=== PATIENT | female | born 1970 | race Caucasian/White ===

== ENCOUNTER 2022-05-25 08:14 | Emergency (ER) | payer OTHER ==
--- OUTSIDE RECORDS SUMMARY | 2022-05-25 08:17 | XMS REPORT | Continuity of Care Document ---
:1970 Author Organization [facility] t Address 1200 [facility] [address] [place] [address] Care Team Providers Name Role Phone A_Byrd Attending Clinician Unavailable A_Byrd Admitting Clinician Unavailable Payers Payer Name Policy Type Policy Number Effective Date Expiration Date [facility] [id number] Problems Condition Condition Condition Status Onset Resolution Last Treating Co mments Source Name Details Category Date Date Treatment Clinician Date Fever Fever Problem Active 2020-0 [facility] 6[facility]11 da 00:00: Medical 00 Group Nausea Nausea Problem Active 2020-0 [facility] present Present 6-11 da 00:00: Medical 00 Group Chronic Chronic Problem Active 2020-0 [facility] hepatitis Hepatitis 4-29 da C C 00:00: Medical 00 Group Chronic Chronic Problem Active 2020-0 [facility] anxiety Anxiety 4-29 da 00:00: Medical 00 Group Menopausal Menopausal Problem Active 2020-0 [facility] syndrome Syndrome 4-29 da 00:00: Medical 00 Group Excessive Excessive Problem Active 2020-0 [facility] weight Weight 4-29 da gain Gain 00:00: Medical 00 Group Bilateral Bilateral Problem Active 2020-0 [facility] foot joint Foot Joint 4-29 da pain Pain 00:00: Medical 00 Group Allergies, Adverse Reactions, Alerts This patient has no known allergies or adverse reactions. Social History Smoking Status Start Date Stop Date Source Never Smoker [facility] Medications Ordered Filled Start Stop Current Ordering Indication Dosage Frequency Signature Comments Components Source Medication Medication Date Date Medication? Clinician (SIG) Name Name ondansetron ondansetron No 2 BID ondansetro [facility] HCl 4 mg HCl 4 mg n HCl 4 mg d a tablet Take tablet Take tablet Medical 2 tablets 2 tablets Take 2 Barrett up twice a day twice a day tablets by oral by oral twice a route. take route. take day by as needed as needed oral for nausea for nausea route. take as needed for nausea Procedures Procedure Date / Time Performed Performing Clinician [facility] e MAMMO, screening, 2019-07-03 00:00:00 [facility] digital, bilateral Group Removal of Ectopic 1993-03-06 00:00:00 [facility]etus [facility] Encounters Start End Encounter Admission Attending Care Care Encounter Source Date/Time Date/Time Type Type Clinicians Facility Department ID 2020-01-11 2020-01-11 Outpatient A_Byrd [facility] [id number] [facility] 01:05:00 01:05:00 [facility]7 [facility] 2019-12-07 2019-12-07 Outpatient A_Byrd [facility] MMG [id number] [facility] 01:02:00 01:02:00 1003 [facility] 2019-11-14 2019-11-14 Outpatient A_Byrd [facility] MMG [id number] [facility] 11:54:00 11:54:00 0910 [facility] Group 2019-10-11 2019-10-11 Outpatient A_Byrd [facility] MMG [id number] [facility] 05:56:00 05:56:00 0826 Medical Group 2019-09-22 2019-09-22 Outpatient A_Byrd [facility] MMG [id number] [facility] 12:07:00 12:07:00 0719 [facility] Group 2019-09-03 2019-09-03 Outpatient A_Byrd MMG MMG [id number] [facility] 03:42:00 03:42:00 0630 Medical Group 2019-08-18 2019-08-18 Outpatient A_Byrd MMG MMG [id number] [facility] 12:18:00 12:18:00 0614 Medical Group 2019-08-15 2019-08-15 [place] [id number] [facility] 05:59:00 05:59:00 0611 Medical Group 2019-08-15 2019-08-15 Marco Antonio Acevedo [facility] [place] - [id number] M at[facility] 00:00:00 00:00:00 MD Selvin: [address] [facility] [place] [address], [facility] [address] , Ph. 2019-08-14 2019-08-14 [facility] [id number] [place] 03:41:00 03:41:00 0610 Medical [facility] 2019-07-14 2019-07-14 [facility] [id number] [place] 12:08:00 12:08:00 0510 [facility] 2019-07-03 2019-07-03 Outpatient A_Byrd [facility] [id number] [place] 06:07:00 06:07:00 0429 [facility] 2019-07-03 2019-07-03 Marco Antonio N [facility] [place] - [id number] M at[facility] 00:00:00 00:00:00 MD Selvin: [place] [address], [facility] [address] , Ph. 2019-07-01 2019-07-01 Outpatient A_Byrd [facility] [id number] [place] 02:46:00 02:46:00 0427 [facility] 2019-06-25 2019-06-25 Outpatient A_Byrd [facility] [id number] [place] 11:11:00 11:11:00 0421 [facility] 2019-06-20 2019-06-20 Outpatient A_Byrd [facility] [id number] [place] 05:20:00 05:20:00 0416 [facility] 2019-06-19 2019-06-19 Outpatient A_Byrd [facility] [id number] [facility] 01:21:00 01:21:00 0415 [facility] Results This patient has no known results.
[2022-05-25] MEDS ORDERED: KETOROLAC 30 MG/ML INJ ONE (08:35)
--- NOTE | 2022-05-25 10:01 | RAD REPORT ---
EXAM DESCRIPTION: RAD - Foot Left 3 View - 05/25/2022 9:53 am CLINICAL HISTORY: Left Foot pain FINDINGS: No fracture or dislocation is seen. Moderate plantar calcaneal spur
--- NOTE | 2022-05-25 10:50 | EDPHYS ---
Physician Documentation [facility] Name: China Champagne Age: 51 yrs Sex: Female : 1970 Arrival Date: 05/25/2022 Time: 08:17 Bed 7 Private MD: ED Physician Eric Hightower HPI: 05/25 10:53 This 51 yrs old Female presents to ER via Ambulatory with complaints of Toe Injury. snw 10:53 The patient presents with a contusion, a crush injury, an injury, pain. The complaints snw affect the left foot. Context: The problem was sustained at work. Onset: The symptoms/episode began/occurred acutely. Associated signs and symptoms: Pertinent positives: foot pad contusion s/p large cover falling across dorsal foot. The patient has not experienced similar symptoms in the past. Historical: - Allergies: 08:26 No Known Allergies; ss - Home Meds: 08: None [Active]; ss - PMHx: 08: None; ss - PSHx: 08:26 None; ss - Immunization history:: Client reports receiving the 2nd dose of the Covid vaccine. - Social history:: Smoking status: Patient denies any tobacco usage or history of. ROS: 10:52 Constitutional: Negative for fever, chills, and weight loss, Eyes: Negative for injury, snw pain, redness, and discharge, ENT: Negative for injury, pain, and discharge, Neck: Negative for injury, pain, and swelling, Cardiovascular: Negative for chest pain, palpitations, and edema, Respiratory: Negative for shortness of breath, cough, wheezing, and pleuritic chest pain, Abdomen/GI: Negative for abdominal pain, nausea, vomiting, diarrhea, and constipation, Back: Negative for injury and pain, : Negative for injury, bleeding, discharge, and swelling, Skin: Negative for injury, rash, and discoloration, Neuro: Negative for headache, weakness, numbness, tingling, and seizure, Psych: Negative for depression, anxiety, suicide ideation, homicidal ideation, and hallucinations. 10:52 MS/extremity: Positive for contusion, pain, swelling. Exam: 08:27 Constitutional: This is a well developed, well nourished patient who is awake, alert, snw and in no acute distress. Head/Face: Normocephalic, atraumatic. Eyes: Pupils equal round and reactive to light, extra-ocular motions intact. Lids and lashes normal. Conjunctiva and sclera are non-icteric and not injected. Cornea within normal limits. Periorbital areas with no swelling, redness, or edema. Chest/axilla: Normal chest wall appearance and motion. Nontender with no deformity. No lesions are appreciated. Cardiovascular: Regular rate and rhythm with a normal S1 and S2. No gallops, murmurs, or rubs. Normal PMI, no JVD. No pulse deficits. Skin: Warm, dry with normal turgor. Normal color with no rashes, no lesions, and no evidence of cellulitis. 08:27 Neuro: Awake and alert, GCS 15, oriented to person, place, time, and situation. Cranial nerves II-XII grossly intact. Motor strength 5/5 in all extremities. Sensory grossly intact. Cerebellar exam normal. Normal gait. Psych: Awake, alert, with orientation to person, place and time. Behavior, mood, and affect are within normal limits. 08:27 Musculoskeletal/extremity: Extremities: grossly normal except: noted in the ball of left foot: contusion, ROM: no acute changes, Sensation intact. Weight bearing: able to fully bear weight, painful. Vital Signs: 08:24 Resp 17; Weight 127.01 kg; Height 5 ft. 9 in. ; Pain 10/10; ss 08:29 BP 179 / 90; Pulse 79; Resp 19 S; Temp 98.6(O); Pulse Ox 95% on R/A; Pain 10/10; kc6 09:02 BP 152 / 87; Pulse 71; Resp 16; Pulse Ox 95% ; bp 09:16 BP 148 / 89; Pulse 70; Resp 18 S; Pulse Ox 95% on R/A; kc6 10:20 BP 140 / 82; Pulse 70; Resp 18 S; Pulse Ox 97% on R/A; kc6 10:55 BP 140 / 82; Pulse 59; Resp 16; Pulse Ox 96% on R/A; Pain 3/10; sg5 08:24 Body Mass Index 41.35 (127.01 kg, 175.26 cm) ss 08:24 Pain Scale: Adult ss 08:29 Pain Scale: Adult kc6 10:55 Pain Scale: Adult sg5 MDM: 08:21 Patient medically screened. snw 10:51 Differential diagnosis: contusion, fracture. Data reviewed: vital signs, nurses notes, snw radiologic studies, plain films. Counseling: I had a detailed discussion with the patient and/or guardian regarding: the historical points, exam findings, and any diagnostic results supporting the discharge/admit diagnosis, the presence of at least one elevated blood pressure reading (>120/80) during this emergency department visit, radiology results, the need for outpatient follow up, for definitive care, to return to the emergency department if symptoms worsen or persist or if there are any questions or concerns that arise at home. Special discussion: I have referred the patient to see his PCP for further evaluation of high blood pressure. Based on the history and exam findings, there is no indication for further emergent testing or inpatient evaluation. I discussed with the patient/guardian the need to see the primary care provider for further evaluation of the symptoms. 05/25 08:26 Order name: Foot Left 3 View XRAY; Complete Time: 10:46 snw Administered Medications: 08:34 Drug: Ketorolac IM 15 mg Route: IM; Site: right deltoid; kc6 10:18 Follow up: Response: No adverse reaction; Pain is decreased; RASS: Alert and Calm (0) kc6 Disposition: 10:53 Co-signature as Attending Physician, Eric Hightower MD I reviewed the patient's care rt provided by the Advanced Practice Provider and agree with the diagnosis and treatment plan. Disposition Summary: 05/25/22 10:49 Discharge Ordered Location: Home snw Condition: Stable snw Diagnosis - Pain in left foot snw Followup: snw - With: Emergency Department - When: As needed - Reason: Worsening of condition Followup: snw - With: Private Physician - When: As needed - Reason: Recheck today's complaints, Continuance of care, Re-evaluation by your physician Discharge Instructions: - Discharge Summary Sheet snw - Musculoskeletal Pain snw - How to Use Cold Therapy, [id number] snw Forms: - Work release form snw - Medication Reconciliation Form snw - Thank You Letter snw - Antibiotic Education snw - Prescription Opioid Use snw Prescriptions: - Mobic 7.5 mg Oral Tablet - take 1 tablet by ORAL route once daily take with food; 20 tablet; Refills: 0, snw Product Selection Permitted Signatures: Dispatcher [employer] Zakia Mejía, PROCUREMENT ENGINEER-C PROCUREMENT ENGINEER-Csnw Amber Jones, RN RN ss Jeannine Florian RN RN kc6 Eric Hightower MD MD rt
--- NOTE | 2022-05-25 10:50 | ER ---
Nurse's Notes [facility] Name: China Champagne Age: 51 yrs Sex: Female : 1970 Arrival Date: 05/25/2022 Time: 08:17 Bed 7 Private MD: Diagnosis: Pain in left foot Presentation: 05/25 08:24 Chief complaint: Patient states: L great toe injury on Monday. Pt reports that pain got ss worse 2 days ago. Coronavirus screen: Client denies travel out of the [place] in the last 14 days. Ebola Screen: Patient denies exposure to infectious person. Patient denies travel to an Ebola-affected area in the 21 days before illness onset. Initial Sepsis Screen: Does the patient meet any 2 criteria? No. Patient's initial sepsis screen is negative. Does the patient have a suspected source of infection? No. Patient's initial sepsis screen is negative. Risk Assessment: Do you want to hurt yourself or someone else? Patient reports no desire to harm self or others. Onset of symptoms was May 20, 2022. 08:24 Method Of Arrival: Ambulatory ss 08:24 Acuity: ADRYAN 4 ss Historical: - Allergies: 08:26 No Known Allergies; ss - Home Meds: 08:26 None [Active]; ss - PMHx: 08:26 None; ss - PSHx: 08:26 None; ss - Immunization history:: Client reports receiving the 2nd dose of the Covid vaccine. - Social history:: Smoking status: Patient denies any tobacco usage or history of. Screenin:[facility] ED Fall Risk Assessment (Adult) History of falling in the last 3 months, sg5 including since admission No falls in past 3 months (0 pts). Abuse screen: Denies threats or abuse. Nutritional screening: No deficits noted. Tuberculosis screening: No symptoms or risk factors identified. Assessment: 08:28 General: Appears comfortable, Behavior is calm, cooperative, appropriate for age. Pain: sg5 Complains of pain in left top foot Pain currently is 10 out of 10 on a pain scale. at worst was 10 out of 10 on a pain scale. Neuro: No deficits noted. Level of Consciousness is awake, alert, obeys commands, Oriented to person, place, time, situation, Appropriate for age. Cardiovascular: No deficits noted. Capillary refill < 3 seconds. Respiratory: No deficits noted. Airway is patent Trachea midline. GI: No deficits noted. No signs and/or symptoms were reported involving the gastrointestinal system. : No deficits noted. No signs and/or symptoms were reported regarding the genitourinary system. EENT: No deficits noted. No signs and/or symptoms were reported regarding the EENT system. Derm: Skin is pink and inflamed area over top left foot Reports pain that is 10 out of 10 on a pain scale. since Monday05/20/22. Musculoskeletal: Reports pain in left foot with ROM. 09:15 Reassessment: Patient appears in no apparent distress at this time. No changes from kc6 previously documented assessment. Patient and/or family updated on plan of care and expected duration. Pain level reassessed. Patient is alert, oriented x 3, equal unlabored respirations, skin warm/dry/pink. 10:15 Reassessment: Patient appears in no apparent distress at this time. No changes from kc6 previously documented assessment. Patient and/or family updated on plan of care and expected duration. Pain level reassessed. Patient is alert, oriented x 3, equal unlabored respirations, skin warm/dry/pink. Vital Signs: 08:24 Resp 17; Weight 127.01 kg; Height 5 ft. 9 in. ; Pain 10/10; ss 08:29 BP 179 / 90; Pulse 79; Resp 19 S; Temp 98.6(O); Pulse Ox 95% on R/A; Pain 10/10; kc6 09:02 BP 152 / 87; Pulse 71; Resp 16; Pulse Ox 95% ; bp 09:16 BP 148 / 89; Pulse 70; Resp 18 S; Pulse Ox 95% on R/A; kc6 10:20 BP 140 / 82; Pulse 70; Resp 18 S; Pulse Ox 97% on R/A; kc6 10:55 BP 140 / 82; Pulse 59; Resp 16; Pulse Ox 96% on R/A; Pain 3/10; sg5 08:24 Body Mass Index 41.35 (127.01 kg, 175.26 cm) ss 08:24 Pain Scale: Adult ss 08:29 Pain Scale: Adult kc6 10:55 Pain Scale: Adult sg5 ED Course: 08:17 Patient arrived in ED. am2 08:21 Zakia Miranda FNP-C is PHCP. snw 08:21 Eric Hightower MD is Attending Physician. snw 08:21 Darryl Hoang, RN is Primary Nurse. bp 08:26 Triage completed. ss 08:26 Arm band placed on right wrist. ss 08:29 Patient has correct armband on for positive identification. Placed in gown. Bed in low kc6 position. Call light in reach. Side rails up X2. 09:55 Foot Left 3 View XRAY In Process Unspecified. EDMS 11:09 No provider procedures requiring assistance completed. Patient did not have IV access kc6 during this emergency room visit. Administered Medications: 08:34 Drug: Ketorolac IM 15 mg Route: IM; Site: right deltoid; kc6 10:18 Follow up: Response: No adverse reaction; Pain is decreased; RASS: Alert and Calm (0) kc6 Medication: 08:31 VIS not applicable for this client. sg5 Outcome: 10:49 Discharge ordered by MD. snw 11:09 Discharged to home ambulatory. kc6 11:09 Condition: stable 11:09 Discharge instructions given to patient, Instructed on discharge instructions, follow up and referral plans. medication usage, Demonstrated understanding of instructions, follow-up care, medications, Prescriptions given X 1. 11:09 Patient left the ED. kc6 Signatures: Dispatcher [employer] EDZakia Blanton, CATHERINE CULINARY ARTIST-Csnw Amber Jones, RN TAY Loree Torres am2 Darryl Hoang, RN RN Jeannine Deluca RN RN kc6 Bridgette Dos Santos RN RN sg5
[2022-05-25 11:15] VITALS: TEMP 98.6
[2022-05-25 11:18] VITALS: BP 140/82
[2022-05-25 11:20] VITALS: O2SAT 96
== END 2022-05-25 11:09 | disposition home or self-care (01) ==
LOC: ER 08:14
DX: M79.672 Pain in left foot (principal)
CPT/HCPCS: 96372; 99283

== ENCOUNTER 2023-07-06 19:59 | Inpatient (IN) | payer OTHER ==
--- OUTSIDE RECORDS SUMMARY | 2023-07-06 20:01 | XMS REPORT | Continuity of Care Document ---
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 Name Role Phone A_Byrd Attending Clinician Unavailable A_Byrd Admitting Clinician Unavailable Payers Payer Name Policy Type Policy Number Effective Date Expirati on Date Source [facility] [id number] Problems Condition Name Condition Details Condition Category Status Onset Date Resolution Date Last Treatment Date Treating Clinician Comments Source Fever Fever Problem Active 2020-0 6-11 00:00: 00 [facility] Nausea present Nausea Present Problem Active 2020-0 6-11 00:00: 00 [facility] Chronic hepatitis C Chronic Hepatitis C Problem Active 20200 4-29 00:00: 00 [facility] Chronic anxiety Chronic Anxiety Problem Active 20200 4-29 00:00: 00 [facility] Menopausal syndrome Menopausal Syndrome Problem Active 20200 4-29 00:00: 00 [facility] Excessive weight gain Excessive Weight Gain Problem Active 20200 4-29 00:00: 00 [facility] Bilateral foot joint pain Bilateral Foot Joint Pain Problem Active 20200 4-29 00:00: 00 [facility] Social History Smoking Status Start Date Stop Date Source Never Smoker [facility] Medications Ordered Medication Name Filled Medication Name Start Date Stop Date Current Medication? Ordering Clinician Indication Dosage Frequency Signature (SIG) Comments Components Source ondansetron HCl 4 mg tablet Take 2 tablets twice a day by oral route. take as needed for nausea ondansetron HCl 4 mg tablet Take 2 tablets twice a day by oral route. take as needed for nausea No 2 BID ondansetro n HCl 4 mg tablet Take 2 tablets twice a day by oral route. take as needed for nausea [facility] Procedures Procedure Date / Time Performed Performing [facility] Source MAMMO, screening, digital, bilateral 2019-07-03 00:00:00 [facility] Removal of Ectopic Fetus 1993-03-06 00:00:00 [facility] Encounters Start Date/Time End Date/Time Encounter Type Admission Type Attending [facility] Care Facility Care Department Encounter ID Source 2020-01-11 01:05:00 2020-01-11 01:05:00 Outpatient A_Byrd [facility] 1107 [facility] 2019-12-07 01:02:00 2019-12-07 01:02:00 Outpatient A_Byrd [facility] [id number] [facility] 2019-11-14 11:54:00 2019-11-14 11:54:00 Outpatient A_Byrd [facility] [id number] [facility] 2019-10-11 05:56:00 2019-10-11 05:56:00 Outpatient A_Byrd [facility] [id number] [facility] 2019-09-22 12:07:00 2019-09-22 12:07:00 Outpatient A_Byrd [facility] [id number] [facility] 2019-09-03 03:42:00 2019-09-03 03:42:00 Outpatient A_Byrd [facility] [id number] [facility] 2019-08-18 12:18:00 2019-08-18 12:18:00 Outpatient A_Byrd [facility] [id number] [facility] 2019-08-15 05:59:00 2019-08-15 05:59:00 Outpatient A_Byrd [facility] [id number] [facility] 2019-08-15 00:00:00 2019-08-15 00:00:00 Marco Antonio Montalvo MD: [address] [place] [address] [address], [place] [address] , Ph. [facility] [id number] [facility] 2019-08-14 03:41:00 2019-08-14 03:41:00 Outpatient A_Byrd [facility] [id number] [facility] 2019-07-14 12:08:00 2019-07-14 12:08:00 Outpatient A_Byrd [facility] [id number] [facility] 2019-07-03 06:07:00 2019-07-03 06:07:00 Outpatient A_Byrd [facility] [id number] [facility] 2019-07-03 00:00:00 2019-07-03 00:00:00 Marco Antonio Montalvo MD: [address] [place] [id number] , Ph. [facility] [id number] [facility] 2019-07-01 02:46:00 2019-07-01 02:46:00 Outpatient A_Byrd [facility] [id number] [facility] 2019-06-25 11:11:00 2019-06-25 11:11:00 Outpatient A_Byrd [facility] [id number] [facility] 2019-06-20 05:20:00 2019-06-20 05:20:00 Outpatient A_Byrd [facility] [id number] [facility] 2019-06-19 01:21:00 2019-06-19 01:21:00 Outpatient A_Byrd [facility] [id number] [facility]
[2023-07-06] MEDS ORDERED: THIAMINE 200 MG/2 ML INJ ONE (20:36)
[2023-07-06] MEDS ORDERED: FOLIC ACID 5 MG/ML VIAL ONE (20:37)
[2023-07-06] MEDS ORDERED: NA CHLORIDE 0.9% 2,000 ML ONE (20:37)
[2023-07-06] MEDS ORDERED: MULTIVITAMINS 10 ML VIAL (INJ) IV ONE (20:37)
[2023-07-06] MEDS ORDERED: CEFTRIAXONE 1000 MG/VIAL ONE (20:45)
[2023-07-06] MEDS ORDERED: LORazepam 2 MG/ML VIAL ONE (20:46)
[2023-07-06] MEDS ORDERED: FAMOTIDINE 20 MG/2 ML VIAL IV ONE (20:46)
[2023-07-06 20:47] LABS: Arterial Blood Carboxyhemoglob 1.1 % (0-1.5); Blood Gas Oxyhemoglobin 91.8 % (94-97); Blood Gas THB 13.1 g/dl (12-18); Blood O2 Saturation 94.2 % (92-98.5)
[2023-07-06 21:21] LABS: Absolute Eosinophils 0.1 K/uL (0-0.5); Absolute Lymphocytes (CBC) 1.8 K/uL (0.7-4.9); Absolute Monocytes 0.3 K/uL (0.1-1.3); Absolute Neutrophil 4.4 K/uL (1.8-8.0); Basophils % 0.5 % (0-1.3); Eosinophils % 1.1 % (0-4.4); Hematocrit 36.3 % (36.0-45.0); Hemoglobin 12.2 g/dL (12.0-15.0); Lymphocytes % 27.1 % (15.3-44.8); MCH 29.8 pg (27.0-35.0); MCHC 33.6 g/dL (32.0-36.0); MCV 88.6 fL (80-100); MPV 7.8 fL (7.6-11.3); Monocytes % 5.1 % (3.3-12.3); Neutrophils % 66.2 % (41.7-73.7); Nucleated Red Blood Cells % 0.1 % (0-0); Platelets 146 thou/uL (152-406); Red Cell Distribution Width 13.1 % (12.1-15.2)
[2023-07-06 21:26] LABS: PT Prothrombin Time 11.2 SECONDS (9.5-12.5); PTT, Activated Partial Thromb 30.7 SECONDS (24.3-36.9); Protime INR 1.02
[2023-07-06 21:43] LABS: ALT/SGPT 30 U/L (13-56); AST/SGOT 22 U/L (15-37); Albumin 3.3 g/dL (3.4-5.0); Albumin/Globulin Ratio 0.8 (1.1-1.8); Alkaline Phosphatase 64 U/L (45-117); Anion Gap 8.7 mEq/L (5.0-15.0); BUN Blood Urea Nitrogen 34 mg/dL (7-18); Bicarbonate 25 mEq/L (21-32); Bilirubin Direct 0.1 mg/dL (0-0.2); Bilirubin Indirect, Calculated 0.4 mg/dL (0.2-0.8); Bilirubin Total 0.5 mg/dL (0.2-1.0); Globulin 4.2 g/dL (2.3-3.5); Glomerular Filtration Rate 37 ml/min (=/>90); Glucose Level 119 mg/dL (74-106); Magnesium 1.6 mg/dL (1.6-2.4); NT PRO-BNP 2489 pg/mL (<125); Potassium 3.7 mEq/L (3.5-5.1); Protein, Total 7.5 g/dL (6.4-8.2); Sodium Level 141 mEq/L (136-145); Troponin High Sensitivity 4.6 pg/mL (<58.9)
[2023-07-06] MEDS ORDERED: NA CHLORIDE 0.9% 100 ML ONE (21:51)
[2023-07-06] MEDS ORDERED: PIPERACIL/TAZO 3.375 GM VIAL IV ONE (21:52)
[2023-07-06] MEDS ORDERED: NA CHLORIDE 0.9% 1,000 ML ONE (21:52)
--- NOTE | 2023-07-06 22:01 | RAD REPORT ---
EXAM DESCRIPTION: RAD - Chest Single View - 07/06/2023 9:54 pm CLINICAL HISTORY: ABDOMINAL DISTENTION Chest pain. COMPARISON: No comparisons FINDINGS: Portable technique limits examination quality. The lungs are grossly clear. The heart is mildly enlarged in size. No displaced fractures. IMPRESSION: No acute intrathoracic process suspected.
[2023-07-06] MEDS ORDERED: ZIPRASIDONE MESYLA 20 MG/VIAL IM ONE (22:10)
[2023-07-06] MEDS ORDERED: WATER FOR INJ,STERILE 10 ML ONE (22:11)
--- NOTE | 2023-07-06 22:16 | EDPHYS ---
Physician Documentation [facility] Name: China Champagne Age: 53 yrs Sex: Female : 1970 Arrival Date: 07/06/2023 Time: 19:59 Bed 2 Private MD: ED Physician Alex Negron HPI: 07/05 22:06 This 53 yrs old Female presents to ER via EMS with complaints of Altered jerod Mental Status. 22:06 The patient presents with confusion, disorientation, trouble concentrating. Onset: The jerod symptoms/episode began/occurred just prior to arrival. Possible causes: CVA or TIA, drug use, alcohol, head injury, low blood sugar, seizure, sepsis. Associated signs and symptoms: Pertinent positives: lightheadedness. Current symptoms: In the emergency department the patient's symptoms are unchanged from the initial presentation, despite home interventions, despite EMS interventions. Patient's baseline: Neuro: alert and fully oriented. It is unknown whether or not the patient has had similar symptoms in the past. [employer]: 07/06 00:48 Not km8 Historical: - Allergies: 07/05 20:01 Unable to obtain; mb9 - Home Meds: 20:01 Unable to obtain [Active]; mb9 - PMHx: 20:01 Hepatitis; HTN; mb9 - PSHx: 20:01 Unable to Obtain; mb9 - Immunization history:: Adult Immunizations unknown. - Infectious Disease History:: Denies. - Social history:: Smoking status: unknown. ROS: 22:07 Constitutional: Negative for fever, chills, and weight loss, Eyes: Negative for injury, jerod pain, redness, and discharge, ENT: Negative for injury, pain, and discharge, Neck: Negative for injury, pain, and swelling, Cardiovascular: Negative for chest pain, palpitations, and edema, Respiratory: Negative for shortness of breath, cough, wheezing, and pleuritic chest pain, 22:08 Abdomen/GI: Negative for abdominal pain, nausea, vomiting, diarrhea, and constipation, jerod Back: Negative for injury and pain, : Negative for injury, bleeding, discharge, and swelling, MS/Extremity: Negative for injury and deformity, Skin: Negative for injury, rash, and discoloration, Allergy/Immunology: Negative for hives, rash, and allergies, Endocrine: Negative for neck swelling, polydipsia, polyuria, polyphagia, and marked weight changes, 22:08 Neuro: Positive for altered mental status, Exam: 22:10 Constitutional: This is a well developed, well nourished patient who is awake, alert, jerod and in no acute distress. Head/Face: Normocephalic, atraumatic. Eyes: Pupils equal round and reactive to light, extra-ocular motions intact. Lids and lashes normal. Conjunctiva and sclera are non-icteric and not injected. Cornea within normal limits. Periorbital areas with no swelling, redness, or edema. ENT: Nares patent. No nasal discharge, no septal abnormalities noted. Tympanic membranes are normal and external auditory canals are clear. Oropharynx with no redness, swelling, or masses, exudates, or evidence of obstruction, uvula midline. Mucous membranes moist. Neck: Trachea midline, no thyromegaly or masses palpated, and no cervical lymphadenopathy. Supple, full range of motion without nuchal rigidity, or vertebral point tenderness. No Meningismus. Chest/axilla: Normal chest wall appearance and motion. Nontender with no deformity. No lesions are appreciated. Cardiovascular: Regular rate and rhythm with a normal S1 and S2. No gallops, murmurs, or rubs. Normal PMI, no JVD. No pulse deficits. Abdomen/GI: Soft, non-tender, with normal bowel sounds. No distension or tympany. No guarding or rebound. No evidence of tenderness throughout. Back: No spinal tenderness. No costovertebral tenderness. Full range of motion. Skin: Warm, dry with normal turgor. Normal color with no rashes, no lesions, and no evidence of cellulitis. MS/ Extremity: Pulses equal, no cyanosis. Neurovascular intact. Full, normal range of motion. 22:10 Neuro: Orientation: unable to test, Mentation: slow to respond, confused, Memory: unable to test, Cranial nerves: no acute changes, Motor: moves all fours, Sensation: unable to test, Gait: not tested. seizure activity, is not displayed by the patient, 07/06 00:08 ECG was reviewed by the Attending Physician. [facility] Vital Signs: 07/05 20:01 Pulse 74; Resp 22; Temp 98.1(T); Pulse Ox 100% on R/A; Weight 111.13 kg; Height 5 ft. 8 mb9 in. ; 21:10 Pulse 85; Resp 22; Pulse Ox 100% on R/A; mb9 21:49 BP 131 / 76; Pulse 61; Resp 15; Pulse Ox 95% on R/A; mb9 22:00 BP 135 / 76; Pulse 61; Resp 26; Pulse Ox 94% on R/A; km8 23:30 BP 142 / 90; Pulse 57; Resp 20; Pulse Ox 97% on R/A; 8 07/06 00:00 BP 136 / 88; Pulse 52; Resp 20; Pulse Ox 100% on R/A; km8 00:30 BP 127 / 84; Pulse 51; Resp 20; Pulse Ox 98% on R/A; [facility] 07/05 20:01 Body Mass Index 37.25 (111.13 kg, 172.72 cm) 9 Marlys Coma Score: 07/05 22:10 Eye Response: to voice(3). Motor Response: localizes pain(5). Verbal Response: jerod confused(4). Total: 12. MDM: 20:09 Patient medically screened. jerod 22:11 Differential Diagnosis: CVA, electrolyte abnormality, alcohol intoxication, jerod hypoglycemia, intracranial bleed, overdose, pneumonia, seizure, sepsis, TIA, UTI, volume depletion. Data reviewed: vital signs, nurses notes, EMS record, lab test result(s), EKG, radiologic studies, CT scan, plain films. Consideration of Admission/Observation Patient was admitted/placed on observation. Escalation of care including admission/observation considered. I considered the following discharge prescriptions or medication management in the emergency department Medications were administered in the Emergency Department. See MAR. Independent interpretation of the following test(s) in the Emergency Department EKG: See my EKG interpretation above. Test considered but Not performed: MRI: no mri brain. Historians other than the Patient: EMS: ems well informed. Spouse/Significant Other: so well informed. Care significantly affected by the following chronic conditions: Hypertension, Obesity, substance abuse. 07/05 20:25 Order name: Acetaminophen; Complete Time: 22:03 [facility] 07/05 20:25 Order name: Basic Metabolic Panel; Complete Time: 22:03 [facility] 07/05 20:25 Order name: CBC with Diff; Complete Time: 22:03 [facility] 07/05 20:25 Order name: ETOH Level; Complete Time: 22:03 [facility] 07/05 20:25 Order name: Hepatic Function; Complete Time: 22:03 [facility] 07/05 20:25 Order name: PT-INR; Complete Time: 22:03 [facility] 07/05 20:25 Order name: Test, Urine; Complete Time: 00:08 [facility] 07/05 20:25 Order name: Ptt, Activated; Complete Time: 22:03 [facility] 07/05 20:25 Order name: Salicylate [facility] 07/05 20:25 Order name: Urinalysis w/ reflexes; Complete Time: 00:08 [facility] 07/05 20:25 Order name: Urine Drug Screen [facility] 07/05 20:25 Order name: Magnesium; Complete Time: 22:03 [facility] 07/05 20:25 Order name: NT PRO-BNP; Complete Time: 22:03 [facility] 07/05 20:25 Order name: Troponin HS; Complete Time: 22:03 [facility] 07/05 20:25 Order name: ABG; Complete Time: 22:03 [facility] 07/05 20:36 Order name: Blood Culture Adult (2) [facility] 07/05 20:36 Order name: Lactate w/ 2H reflex if indic.; Complete Time: 22:03 [facility] 07/05 22:08 Order name: AMMONIA; Complete Time: 00:08 [facility] 07/05 23:44 Order name: Urine Culture [facility] 07/06 00:15 Order name: Urinalysis w/ reflexes [facility] 07/06 00:15 Order name: CBC with Automated Diff [facility] 07/06 00:15 Order name: CBC with Automated Diff [facility] 07/06 00:15 Order name: Comprehensive Metabolic Panel [facility] 07/06 00:15 Order name: Comprehensive Metabolic Panel [facility] 07/06 00:42 Order name: Lactate Sepsis 2 HR Follow-up [facility] 07/05 20:25 Order name: XRAY Chest (1 view); Complete Time: 22:03 [facility] 07/05 20:25 Order name: CT Traumagram (Head C Spine CAP wo con) [facility] 07/05 20:25 Order name: EKG; Complete Time: 20:26 [facility] 07/05 20:15 Order name: Restraint:Violent/Self Destructive (Adult:18yo or >); Complete Time: 20:15 [facility] 07/05 20:25 Order name: EKG - Nurse/Tech; Complete Time: 23:23 [facility] 07/05 20:25 Order name: IV Saline Lock; Complete Time: 21:13 [facility] 07/05 20:25 Order name: Labs collected and sent; Complete Time: 21: [facility] 07/05 20:25 Order name: Suicide Screening (Lee); Complete Time: 21: [facility] 07/05 20:25 Order name: Cardiac monitoring; Complete Time: 21:13 [facility] 07/05 20:25 Order name: O2 Per Protocol; Complete Time: 21:13 [facility] 07/05 20:25 Order name: O2 Sat Monitoring; Complete Time: 21: [facility] 07/05 20:25 Order name: Blood Glucose Level; Complete Time: 21:20 [facility] 07/05 21:42 Order name: Misc. Order: hob 40; Complete Time: 21:49 [facility] 07/05 22:04 Order name: IV Saline Lock - Large Bore; Complete Time: 22:20 [facility] EC/03 00:08 Rate is 46 beats/min. Rhythm is regular. QRS [place] is Normal. [place] interval is normal. QRS jerod interval is normal. QT interval is normal. No Q waves. T waves are Normal. No ST changes noted. Clinical impression: NSR w/ Non-specific ST/T Changes and No evidence of ischemia. Interpreted by me. Reviewed by me. Administered Medications: 07/05 20:45 Drug: NS 0.9% IV 1000 ml IV at 1 bolus Per protocol; 1000 mL bolus Route: IV; Rate: 1 mb9 bolus; Site: right antecubital; 22:00 Follow up: Response: No adverse reaction; IV Status: Completed infusion mb9 20:45 Drug: Thiamine IV 100 mg IV at bolus once Route: IV; Rate: bolus; Site: right mb9 antecubital; 20:45 Drug: Banana Bag - (Multivitamin IV 1 amp, NS 0.9% IV 1000 ml, Thiamine IV 100 mg, mb9 foLIC Acid IVPB 1 mg) IV at 500 ml/hr once Route: IV; Rate: 500 ml/hr; Site: right antecubital; 21:00 Drug: Ativan IVP 2 mg IVP once Route: IVP; Site: right antecubital; mb9 22:00 Follow up: Response: No adverse reaction mb9 21:05 Drug: Famotidine IVP 20 mg IVP once; dilute with 10 mL 0.9% NaCl; give over 2 minutes mb9 Route: IVP; Site: right antecubital; 22:00 Follow up: Response: No adverse reaction mb9 21:12 Drug: Rocephin IV 1 grams IV at per protocol once; Given slow IV push per pharmacy mb9 instructions Route: IV; Rate: per protocol; Site: right antecubital; 22:00 Drug: Piperacillin-Tazobactam IVPB 3.375 grams IVPB once over 60 mins; (mix in NS 100 mb9 mL) Route: IVPB; Infused Over: 60 mins; Site: left hand; 23:00 Follow up: Response: No adverse reaction; IV Status: Completed infusion; IV Intake: ha1 100ml 22:00 Drug: NS 0.9% IV 1000 ml IV at 1 bolus Per protocol; 1000 mL bolus Route: IV; Rate: 1 mb9 bolus; Site: right antecubital; 22:20 Drug: Geodon IM 20 mg IM once Route: IM; Site: left deltoid; ha1 22:40 Follow up: Response: No adverse reaction; Anxiety decreased; RASS: Drowsy (-1) ha1 Disposition Summary: 07/06/23 22:15 Hospitalization Ordered Notes: Hospitalization Status: Inpatient Admission jerod Provider: Willis Simon cha Location: Telemetry/MedSurg (Inpatient) jerod Condition: Fair jerod Problem: new jerod Symptoms: have improved jerod Bed/Room Type: Standard [facility] Room Assignment: 224(07/07/23 00:38) rv1 Diagnosis - Adverse effect of other drugs, medicaments and biological substances jerod - Abuse of other non-psychoactive substances jerod - Altered mental status, unspecified jerod - Unspecified kidney failure - chronic jerod - Adverse effect of benzodiazepines jerod - UTI/ Urinary tract infection, site not specified jerod Forms: - Medication Reconciliation Form jerod - SBAR form jerod - Leadership Thank You Letter jerod Signatures: Dispatcher [employer] Alex Day MD MD cha Ayala, Heidy, RN RN ha1 Ame Gray RN RN mb9 Destiney Collado rv1 Corrections: (The following items were deleted from the chart) 20: 20:25 ACETAMINOPHEN+C.LAB.BRZ ordered. EDMS EDMS 20:26 20:25 BASIC METABOLIC PANEL+C.LAB.BRZ ordered. EDMS EDMS 20: 20:25 CBC+H.LAB.BRZ ordered. EDMS EDMS 20: 20:25 ETHANOL+C.LAB.BRZ ordered. EDMS EDMS 20: 20:25 HEPATIC FUNCTION+C.LAB.BRZ ordered. EDMS EDMS 20: 20:25 PROTIME (+INR)+COAG.LAB.BRZ ordered. EDMS EDMS 20: 20:25 Test, Urine+UC.LAB.BRZ ordered. EDMS EDMS 20: 20:25 PTT, ACTIVATED+COAG.LAB.BRZ ordered. EDMS EDMS 20: 20:25 SALICYLATE+C.LAB.BRZ ordered. EDMS EDMS 20: 20:25 Urinalysis+U.LAB.BRZ ordered. EDMS EDMS 20: 20:25 URINE DRUG SCREEN+UC.LAB.BRZ ordered. EDMS EDMS 20: 20:25 MAGNESIUM+C.LAB.BRZ ordered. EDMS EDMS 20: 20:25 PROBNP+C.LAB.BRZ ordered. EDMS EDMS 20: 20:25 Troponin High Sensitivity+C.LAB.BRZ ordered. EDMS EDMS 20: 20:26 Head C Spine Cap Wo Con+CT.RAD.BRZ ordered. EDMS EDMS 20: 20:26 Arterial Blood Gas+RC.LAB.BRZ ordered. EDMS EDMS 22:11 22:08 Constitutional: This is a well developed, well nourished patient who is awake, jerod alert, and in no acute distress. Head/Face: Normocephalic, atraumatic. Eyes: Pupils equal round and reactive to light, extra-ocular motions intact. Lids and lashes normal. Conjunctiva and sclera are non-icteric and not injected. Cornea within normal limits. Periorbital areas with no swelling, redness, or edema. ENT: Nares patent. No nasal discharge, no septal abnormalities noted. Tympanic membranes are normal and external auditory canals are clear. Oropharynx with no redness, swelling, or masses, exudates, or evidence of obstruction, uvula midline. Mucous membranes moist. Neck: Trachea midline, no thyromegaly or masses palpated, and no cervical lymphadenopathy. Supple, full range of motion without nuchal rigidity, or vertebral point tenderness. No Meningismus. Chest/axilla: Normal chest wall appearance and motion. Nontender with no deformity. No lesions are appreciated. Cardiovascular: Regular rate and rhythm with a normal S1 and S2. No gallops, murmurs, or rubs. Normal PMI, no JVD. No pulse deficits. Respiratory: Lungs have equal breath sounds bilaterally, clear to auscultation and percussion. No rales, rhonchi or wheezes noted. No increased work of breathing, no retractions or nasal flaring. Abdomen/GI: Soft, non-tender, with normal bowel sounds. No distension or tympany. No guarding or rebound. No evidence of tenderness throughout. Back: No spinal tenderness. No costovertebral tenderness. Full range of motion. Skin: Warm, dry with normal turgor. Normal color with no rashes, no lesions, and no evidence of cellulitis. Psych: Awake, alert, with orientation to person, place and time. Behavior, mood, and affect are within normal limits. [facility] 07/06 00:38 07/05 22:15 [facility] rv1
--- NOTE | 2023-07-06 22:16 | ER ---
Nurse's Notes [facility] Name: China Champagne Age: 53 yrs Sex: Female : 1970 Arrival Date: 07/06/2023 Time: 19:59 Bed 2 Private MD: Diagnosis: Adverse effect of other drugs, medicaments and biological substances;Abuse of other non-psychoactive substances;Altered mental status, unspecified;Unspecified kidney failure-chronic;Adverse effect of benzodiazepines;UTI/ Urinary tract infection, site not specified Presentation: 07/05 20:01 Chief complaint: EMS states: "toned out for being found by family unresponsive at home. mb9 Gave 1 mg of Narcan and pt became responsive. Pt states she took 3-5 Alprazolam and has a history of drug abuse. Pt is combative, confused, and noncompliant with staff.". Coronavirus screen: At this time, the client does not indicate any symptoms associated with coronavirus-19. Ebola Screen: No symptoms or risks identified at this time. Initial Sepsis Screen: Does the patient meet any 2 criteria? No. Patient's initial sepsis screen is negative. Does the patient have a suspected source of infection? No. Patient's initial sepsis screen is negative. Risk Assessment: Do you want to hurt yourself or someone else? Unable to obtain. Onset of symptoms was July 06, 2023. 20:01 Method Of Arrival: EMS: [facility] mb9 20:01 Acuity: ADRYAN 2 mb9 Triage Assessment: 20:17 General: Appears uncomfortable, Behavior is agitated, combative, uncooperative. Pain: mb9 Denies pain. EENT: No signs and/or symptoms were reported regarding the EENT system. Neuro: Level of Consciousness is awake, confused, Oriented to person. Cardiovascular: Heart tones S1 S2 present Patient's skin is warm and dry. Respiratory: Airway is patent Respiratory effort is even, unlabored, Respiratory pattern is regular, symmetrical. GI: Abdomen is round obese, Bowel sounds present X 4 quads. Abd is soft and non tender X 4 quads. : No signs and/or symptoms were reported regarding the genitourinary system. Derm: Skin is pink, warm \\T\\ dry. Musculoskeletal: Range of motion: intact in all extremities. BRICK CLEANER: 07/06 00:48 Not km8 Historical: - Allergies: 07/05 20:01 Unable to obtain; mb9 - Home Meds: 20:01 Unable to obtain [Active]; mb9 - PMHx: 20:01 Hepatitis; HTN; mb9 - PSHx: 20:01 Unable to Obtain; mb9 - Immunization history:: Adult Immunizations unknown. - Infectious Disease History:: Denies. - Social history:: Smoking status: unknown. Screenin:18 [facility] ED Fall Risk Assessment (Adult) History of falling in the last 3 months, mb9 including since admission No falls in past 3 months (0 pts) Confusion or Disorientation Yes (5 pts) Intoxicated or Sedated Yes (3 pts) Impaired Gait Yes (1 pt) Mobility Assist Device Used No (0 pt) Altered Elimination No (0 pt) Score/Fall Risk Level 3 or more points = High Risk Oriented to surroundings, Maintained a safe environment, Educated pt \\T\\ family on fall prevention, incl call for assistance when getting out of bed, Assessed \\T\\ reinforced patient's understanding of fall precautions. Abuse screen: Denies threats or abuse. Nutritional screening: No deficits noted. Tuberculosis screening: No symptoms or risk factors identified. Assessment: 20:05 Reassessment: Unable to get BP and EKG at this time due to pt being noncompliant. mb9 21:00 Reassessment: No changes from previously documented assessment. General: Behavior is mb9 agitated, anxious, combative. Neuro: Level of Consciousness is awake, Oriented to person. Cardiovascular: Patient's skin is warm and dry. Respiratory: Airway is patent Respiratory effort is even, unlabored, Respiratory pattern is regular, symmetrical. 21:35 Reassessment: No changes from previously documented assessment. General: Behavior is mb9 agitated, anxious, combative. Neuro: Level of Consciousness is awake, Oriented to person. 22:40 General: Appears comfortable, Behavior is cooperative, drowsy. Pain: Denies pain. ha1 Neuro: Level of Consciousness is awake, alert, obeys commands, Oriented to person, place, time, situation. Cardiovascular: Capillary refill < 3 seconds Patient's skin is warm and dry. Rhythm is sinus bradycardia. Respiratory: Airway is patent Respiratory effort is even, unlabored, Respiratory pattern is regular, symmetrical. GI: Abdomen is round obese. : No signs and/or symptoms were reported regarding the genitourinary system. Derm: Skin is pink, warm \\T\\ dry. Musculoskeletal: Circulation, motion, and sensation intact. Range of motion: intact in all extremities. 23:23 Reassessment: cell # [phone] patient's partner. ha1 23:25 Reassessment: eyes closed. Respiratory: Airway is patent Respiratory effort is even, ha1 unlabored, Respiratory pattern is regular, symmetrical. 07/06 00:25 Reassessment: eyes closed. Respiratory: Airway is patent Respiratory effort is even, ha1 unlabored, Respiratory pattern is regular, symmetrical. 00:56 Reassessment: fax sheet sent. received by TAY Castro. ha1 01:39 Reassessment: Patient and/or family updated on plan of care and expected duration. Pain ha1 level reassessed. Patient is alert, oriented x 3, equal unlabored respirations, skin warm/dry/pink. Vital Signs: 07/05 20:01 Pulse 74; Resp 22; Temp 98.1(T); Pulse Ox 100% on R/A; Weight 111.13 kg; Height 5 ft. 8 mb9 in. ; 21:10 Pulse 85; Resp 22; Pulse Ox 100% on R/A; mb9 21:49 BP 131 / 76; Pulse 61; Resp 15; Pulse Ox 95% on R/A; mb9 22:00 BP 135 / 76; Pulse 61; Resp 26; Pulse Ox 94% on R/A; km8 23:30 BP 142 / 90; Pulse 57; Resp 20; Pulse Ox 97% on R/A; km8 07/06 00:00 BP 136 / 88; Pulse 52; Resp 20; Pulse Ox 100% on R/A; km8 00:30 BP 127 / 84; Pulse 51; Resp 20; Pulse Ox 98% on R/A; km8 07/05 20:01 Body Mass Index 37.25 (111.13 kg, 172.72 cm) mb9 [place] Coma Score: 07/05 22:10 Eye Response: to voice(3). Motor Response: localizes pain(5). Verbal Response: jerod confused(4). Total: 12. ED Course: 20:00 Patient arrived in ED. rv1 20:01 Ame Gray RN is Primary Nurse. mb9 20:01 Arm band placed on. mb9 20:04 Triage completed. mb9 20:04 Placed in gown. Bed in low position. Call light in reach. Side rails up X 1. Provided mb9 Education on: press call light if needing anything. Client placed on continuous cardiac and pulse oximetry monitoring. NIBP monitoring applied. pleating supervisor on. Door closed. Noise minimized. 20:09 Alex Negron MD is Attending Physician. jerod 20:10 Maintain EMS IV. Dressing intact. Good blood return noted. Site clean \\T\\ dry. Gauge \\T\\ mb 9 site: 20 g left hand. 20:15 Inserted saline lock: 22 gauge in right antecubital area, using aseptic technique. mb9 20:49 Radiology exam delayed due to pt is combative and has not received any medication. az 21:13 XRAY Chest (1 view) Sent. mb9 21:41 Notified ED physician of a critical lab result(s). Lactic Acid 2.1. cm10 21:56 XRAY Chest (1 view) In Process Unspecified. EDMS 22:00 Report given to TAY Mary. mb9 22:08 Report received from Christine. ha1 22:13 Willis Simon MD is Hospitalizing Provider. jerod 22:51 CT Traumagram (Head C Spine CAP wo con) In Process Unspecified. EDMS 23:23 AMMONIA Sent. ha1 05 00:47 No provider procedures requiring assistance completed. Patient admitted, IV remains in km8 place. Restraints: 07/05 20:15 Violent/Self Destructive Restraint: Restraint Order: Initial/Renewal: Initial order cm10 obtained. Initiated July 06, 2023 at 20:15 Staff present during the initiation of restraint: Lakeisha Cohen, TAY and Nevigo Po. Family Notification/Education: No family available at this time. . Education provided to family/significant other/legally authorized billing customer service representative. Monitoring: Respiratory status Respirations even/unlabored, no distress. Circulation: Skin warm and dry, capillary refill WNL. Skin integrity: Intact, healthy with good turgor. No injuries due to Restraints noted. Mental status: agitated/restless, Observed actions/behavior: violent, severely aggressive, harming self/others, confusion/disorientation, unable to follow instructions, Less restrictive alternatives attempted: decreased environmental stimuli, 1:1 patient care, placed near Nurse station, reoriented to location, trained sitter in room, covered lines/tubes, eliminated unnecessary lines/tubes, verbal de-escalation performed, Alternative interventions: Effective. Clinical justification for use: Violent/self destructing behavior impacts therapeutic environment. Poses a serious danger to physical safety of self \\T\\ others. Violent/Self Destructive Restraint: Restraint status: Side rails up Started. Soft wrist restraint (Right) Soft wrist restraint (Left) Soft ankle restraint (Right) Soft ankle restraint (Left). 20:30 Violent/Self Destructive Restraint: Restraint status: Side rails up Continued. Soft cm10 wrist restraint (Right) Soft wrist restraint (Left) Soft ankle restraint (Right) Soft ankle restraint (Left) Readiness for Discontinue: Criteria not met. Patient still violent/self destructive and Alternative interventions still ineffective. Restraint continued. 20:45 Violent/Self Destructive Restraint: Restraint status: Side rails up Continued. Soft cm10 wrist restraint (Right) Soft wrist restraint (Left) Soft ankle restraint (Right) Soft ankle restraint (Left) Readiness for Discontinue: Criteria not met. Patient still violent/self destructive and Alternative interventions still ineffective. Restraint continued. 21:00 Violent/Self Destructive Restraint: Restraint status: Side rails up Continued. Soft cm10 wrist restraint (Right) Soft wrist restraint (Left) Soft ankle restraint (Right) Soft ankle restraint (Left) Readiness for Discontinue: Criteria not met. Patient still violent/self destructive and Alternative interventions still ineffective. Restraint continued. 21:15 Violent/Self Destructive Restraint: Criteria not met. Patient still violent/self cm10 destructive and Alternative interventions still ineffective. Restraint continued. Restraint status: Side rails up Continued. Soft wrist restraint (Right) Soft wrist restraint (Left) Soft ankle restraint (Right) Soft ankle restraint (Left). 21:15 Violent/Self Destructive Restraint: ROM performed. mb9 21:30 Violent/Self Destructive Restraint: Criteria not met. Patient still violent/self cm10 destructive and Alternative interventions still ineffective. Restraint continued. Restraint status: Side rails up Continued. Soft wrist restraint (Right) Soft wrist restraint (Left) Soft ankle restraint (Right) Soft ankle restraint (Left). 21:45 Violent/Self Destructive Restraint: Restraint status: Side rails up Continued. Soft cm10 wrist restraint (Right) Continued. Soft wrist restraint (Left) Continued. Soft ankle restraint (Right) Continued. Soft ankle restraint (Left) Continued. Readiness for Discontinue: Criteria not met. Patient still violent/self destructive and Alternative interventions still ineffective. Restraint continued. 22:00 Violent/Self Destructive Restraint: Restraint status: Side rails up Continued. Soft cm10 wrist restraint (Right) Continued. Soft wrist restraint (Left) Continued. Soft ankle restraint (Right) Continued. Soft ankle restraint (Left) Continued. Readiness for Discontinue: Criteria not met. Patient still violent/self destructive and Alternative interventions still ineffective. Restraint continued. 22:00 Violent/Self Destructive Restraint: ROM performed. mb9 22:15 Violent/Self Destructive Restraint: Restraint status: Readiness for Discontinue: cm10 Release criteria met. No longer exhibiting violent or self destructive behavior. Alt interventions effective. Assumed responsibility of patient in restraints. Report received from TAY King Restraint discontinuation: Discontinued at July 06, 2023 at 22:15. Administered Medications: 20:45 Drug: NS 0.9% IV 1000 ml IV at 1 bolus Per protocol; 1000 mL bolus Route: IV; Rate: 1 mb9 bolus; Site: right antecubital; 22:00 Follow up: Response: No adverse reaction; IV Status: Completed infusion mb9 20:45 Drug: Thiamine IV 100 mg IV at bolus once Route: IV; Rate: bolus; Site: right [facility] antecubital; 20:45 Drug: Banana Bag - (Multivitamin IV 1 amp, NS 0.9% IV 1000 ml, Thiamine IV 100 mg, mb9 foLIC Acid IVPB 1 mg) IV at 500 ml/hr once Route: IV; Rate: 500 ml/hr; Site: right antecubital; 21:00 Drug: Ativan IVP 2 mg IVP once Route: IVP; Site: right antecubital; mb9 22:00 Follow up: Response: No adverse reaction mb9 21:05 Drug: Famotidine IVP 20 mg IVP once; dilute with 10 mL 0.9% NaCl; give over 2 minutes mb9 Route: IVP; Site: right antecubital; 22:00 Follow up: Response: No adverse reaction mb9 21:12 Drug: Rocephin IV 1 grams IV at per protocol once; Given slow IV push per pharmacy mb9 instructions Route: IV; Rate: per protocol; Site: right antecubital; 22:00 Drug: Piperacillin-Tazobactam IVPB 3.375 grams IVPB once over 60 mins; (mix in NS 100 mb9 mL) Route: IVPB; Infused Over: 60 mins; Site: left hand; 23:00 Follow up: Response: No adverse reaction; IV Status: Completed infusion; IV Intake: ha1 100ml 22:00 Drug: NS 0.9% IV 1000 ml IV at 1 bolus Per protocol; 1000 mL bolus Route: IV; Rate: 1 mb9 bolus; Site: right antecubital; 22:20 Drug: Geodon IM 20 mg IM once Route: IM; Site: left deltoid; ha1 22:40 Follow up: Response: No adverse reaction; Anxiety decreased; RASS: Drowsy (-1) ha1 Medication: 20:04 VIS not applicable for this client. mb9 Intake: 23:00 IV: 100ml; Total: 100ml. ha1 Outcome: 22:15 Decision to Hospitalize by Provider. [facility] 07/06 01:40 Admitted to Med/surg accompanied by tech, via stretcher, room 224, with chart, ha1 Condition: stable Instructed on the need for admit, Demonstrated understanding of instructions, 01:41 Patient left the ED. 1 Signatures: Dispatcher [employer] EDAlex Barnett MD MD cha Zavala, Araceli az Ayala, Heidy RN RN ha1 Ame Gray RN RN mb9 Destiney Collado rv1 Lakeisha Sifuentes, RN RN cm10 Cassie Ribeiro, TAY RN km8 Corrections: (The following items were deleted from the chart) 07/05 21:33 20:16 Violent/Self Destructive Restraint: Restraint Order: Initial/Renewal: Initial cm10 order obtained. Initiated July 06, 2023 at 20:15 Staff present during the initiation of restraint: Lakeisha Cohen, RN and mandi Fontenot. Family Notification/Education: Education provided to family/significant other/legally authorized billing customer service representative. Monitoring: Respiratory status Respirations even/unlabored, no distress. Circulation: Skin warm and dry, capillary refill WNL. Skin integrity: Intact, healthy with good turgor. No injuries due to Restraints noted. Mental status: agitated/restless, Observed actions/behavior: violent, severely aggressive, harming self/others, confusion/disorientation, unable to follow instructions, Less restrictive alternatives attempted: decreased environmental stimuli, 1:1 patient care, placed near Nurse station, reoriented to location, trained sitter in room, covered lines/tubes, eliminated unnecessary lines/tubes, verbal de-escalation performed, Alternative interventions: Effective. Clinical justification for use: Violent/self destructing behavior impacts therapeutic environment. Poses a serious danger to physical safety of self \\T\\ others. [facility] 21:33 20:16 Violent/Self Destructive Restraint: Restraint Order: Initial/Renewal: Initial cm10 order obtained. Initiated July 06, 2023 at 20:15 Staff present during the initiation of restraint: Lakeisha Cohen RN and Nevigo Po. Family Notification/Education: No family available at this time. . Education provided to family/significant other/legally authorized billing customer service representative. Monitoring: Respiratory status Respirations even/unlabored, no distress. Circulation: Skin warm and dry, capillary refill WNL. Skin integrity: Intact, healthy with good turgor. No injuries due to Restraints noted. Mental status: agitated/restless, Observed actions/behavior: violent, severely aggressive, harming self/others, confusion/disorientation, unable to follow instructions, Less restrictive alternatives attempted: decreased environmental stimuli, 1:1 patient care, placed near Nurse station, reoriented to location, trained sitter in room, covered lines/tubes, eliminated unnecessary lines/tubes, verbal de-escalation performed, Alternative interventions: Effective. Clinical justification for use: Violent/self destructing behavior impacts therapeutic environment. Poses a serious danger to physical safety of self \\T\\ others. [facility] 21:33 20:16 Violent/Self Destructive Restraint: Restraint status: Side rails up Started. Soft cm10 wrist restraint (Right) Soft wrist restraint (Left) Soft ankle restraint (Right) Soft ankle restraint (Left) [facility] 07/06 01:44 07/05 20:30 Violent/Self Destructive Restraint: Restraint status: Side rails up cm10 Continued. Soft wrist restraint (Right) Soft wrist restraint (Left) Soft ankle restraint (Right) Soft ankle restraint (Left) [facility] 07/06 01:44 07/05 21:32 Violent/Self Destructive Restraint: Restraint Order: Initial/Renewal: cm10 Family Notification/Education: 10 07/06 01:44 07/05 22:15 Violent/Self Destructive Restraint: Assumed responsibility of patient in cm10 restraints. Report received from TAY King Restraint discontinuation: Discontinued at July 06, 2023 at 22:15 ha1 07/06 01:44 05/ 22:15 Violent/Self Destructive Restraint: Restraint status: Readiness for cm10 Discontinue: Release criteria met. No longer exhibiting violent or self destructive behavior. Alt interventions effective. Assumed responsibility of patient in restraints. Report received from TAY King Restraint discontinuation: Discontinued at July 06, 2023 at 22:15 cm10 07/06 01:45 07/05 21:00 Violent/Self Destructive Restraint: Restraint status: Side rails up cm10 Continued. Soft wrist restraint (Right) Soft wrist restraint (Left) Soft ankle restraint (Right) Soft ankle restraint (Left) [facility] 07/06 01:46 07/05 20:45 Violent/Self Destructive Restraint: Restraint status: Side rails up cm10 Continued. Soft wrist restraint (Right) Soft wrist restraint (Left) Soft ankle restraint (Right) Soft ankle restraint (Left) 07/06 01:46 07/05 21:15 Violent/Self Destructive Restraint: Restraint status: Side rails up cm10 Continued. Soft wrist restraint (Right) Soft wrist restraint (Left) Soft ankle restraint (Right) Soft ankle restraint (Left) 07/06 01:46 05 21:15 Violent/Self Destructive Restraint: Restraint status: Side rails up cm10 Continued. Soft wrist restraint (Right) Soft wrist restraint (Left) Soft ankle restraint (Right) Soft ankle restraint (Left) 07/06 01:46 07/05 21:30 Violent/Self Destructive Restraint: Restraint status: Side rails up cm10 Continued. Soft wrist restraint (Right) Soft wrist restraint (Left) Soft ankle restraint (Right) Soft ankle restraint (Left) 07/06 01:47 0502 21:45 Violent/Self Destructive Restraint: Restraint status: Side rails up cm10 Continued. Soft wrist restraint (Right) Continued. Soft wrist restraint (Left) Continued. Soft ankle restraint (Right) Continued. Soft ankle restraint (Left) Continued. 07/06 01:47 07/05 22:00 Violent/Self Destructive Restraint: Restraint status: Side rails up cm10 Continued. Soft wrist restraint (Right) Continued. Soft wrist restraint (Left) Continued. Soft ankle restraint (Right) Continued. Soft ankle restraint (Left) Continued. 07/06 01:47 07/05 22:00 Violent/Self Destructive Restraint: Restraint status: Side rails up cm10 Continued. Soft wrist restraint (Right) Continued. Soft wrist restraint (Left) Continued. Soft ankle restraint (Right) Continued. Soft ankle restraint (Left) Continued. Readiness for Discontinue: Criteria not met. Patient still violent/self destructive and Alternative interventions still ineffective. Restraint continued. cm10
--- NOTE | 2023-07-06 23:25 | P.HP ---
Certification for Inpatient Patient admitted to: Inpatient With expected LOS: >2 Midnights Practitioner: I am a practitioner with admitting privileges, knowledge of patient current condition, hospital course, and medical plan of care. Services: Services provided to patient in accordance with Admission requirements found in Title 42 Section 412.3 of the Code of Federal Regulations Patient History Date of Service: 07/07/23 Reason for admission: AMS History of Present Illness: 53 yrs old Female past medical history of hepatitis and hypertension came to ER with altered mental status The patient presents with confusion, disorientation, trouble concentrating, started today. Patient is a poor historian hence most of the history is obtained from the chart review and also talk with the ER physician. As per the EMS patient was taking Xanax and she took doxepin accidentally to sleep along with it. At the time of interview patient is obtunded and cannot be aroused. Maintaining airway. Stroke workup was negative for an acute changes. Patient is being admitted for further management Allergies No Known Allergies Allergy (Unverified 02/04/12 06:15) Home Medications: Cefdinir [Cefdinir*] 300 mg PO BID #14 cap 07/07/23 - Past Medical/Surgical History Past Medical History: Reviewed- Non-Contributory Past Surgical History: Reviewed- Non-Contributory - Family History Family History: Reviewed- Non-Contributory - Social History Smoking Status: Current some day smoker Review of Systems is unable to be obtained Physical Examination - Vital Signs Temperature: 98.1 F Blood Pressure: 128/78 Pulse: 78 Respirations: 18 Pulse Ox (%): 94 - Physical Exam General: Confused, Comatose, Obese HEENT: Atraumatic, Normocephalic Neck: Supple, JVD not distended Respiratory: Clear to auscultation bilaterally, Normal air movement Cardiovascular: Regular rate/rhythm, Normal S1 S2 Capillary refill: <2 Seconds Gastrointestinal: Soft and benign, Non-distended, W/out hepatosplenomegaly Musculoskeletal: No clubbing, No swelling Integumentary: No rashes, No significant lesion, No tenderness/swelling Neurological: Abnormal gait, Abnormal speech, Abnormal strength, Abnormal cranial nerve function, Abnormal reflexes Lymphatics: No axilla or inguinal lymphadenopathy - Studies Laboratory Data (last 24 hrs) 07/06/23 07/06/23 07/06/23 20:59 20:59 20:59 WBC 6.60 Hgb 12.2 Hct 36.3 Plt Count 146 L PT 11.2 INR 1.02 APTT 30.7 Sodium 141 Potassium 3.7 BUN 34 H Creatinine 1.66 H Glucose 119 H Magnesium 1.6 Total Bilirubin 0.5 AST 22 ALT 30 Alkaline Phosphatase 64 Assessment and Plan - Problems (Diagnosis) (1) Benzodiazepine misuse Current Visit: Yes Status: Acute (2) Marijuana use Current Visit: Yes Status: Acute (3) UTI (urinary tract infection) Current Visit: Yes Status: Acute Plan: Acute encephalopathy Possibly toxic due to medications Monitor neuro vital signs CT head negative for any acute changes Monitor closely under telemetry Substance abuse/drug overdoses Supportive management IV hydration N.p.o. for now UTI Will start on antibiotics Obtain cultures Change antibiotic as per sensitivity GI/DVT prophylaxis Advanced directive full code Discharge Plan: Home Plan to discharge in: 48 Hours - Advance Directives Does patient have a Living Will: No Does patient have a Durable POA for Healthcare: No - Code Status/Comfort Care Code Status: Full Code Time Spent Managing Pts Care (In Minutes): 45
[2023-07-06 23:32] LABS: Sqamous Epithelial <5 /HPF (None Seen); Urine Bacteria <20 /HPF (<20); Urine Crystals Unidentified Few /HPF (None Seen); Urine Culture Reflex Order REFLEXED; Urine Microscopic Reflex YN ORDER UMIC; Urine RBC <5 /HPF (None Seen); Urine WBC 20-50 /HPF (<5); Urine WBC Clump Rare /HPF (None Seen); Urine Yeast (Budding) Trace /HPF (None Seen)
[2023-07-06 23:40] LABS: Specific Gravity 1.007 (1.005-1.030); Urine Bilirubin NEGATIVE (Negative); Urine Blood Negative (Negative); Urine Clarity Turbid (Clear); Urine Color Colorless (Yellow); Urine Glucose NEGATIVE (Negative); Urine Ketones NEGATIVE (Negative); Urine Nitrite 2+ (Negative); Urine Protein NEGATIVE (Negative); Urine Urobilinogen Normal (Normal); Urine pH 6.5 (5.0-7.0)
[2023-07-06 23:41] LABS: Specific Gravity 1.007 (1.005-1.030)
[2023-07-07] MEDS ORDERED: ONDANSETRON 4 MG/2 ML VIAL IV PRN (00:10)
[2023-07-07 00:15] LABS: Barbiturates NEGATIVE (NEGATIVE); Benzodiazepines POSITIVE (NEGATIVE); Cocaine NEGATIVE (NEGATIVE); METHAMPHETAM NEGATIVE (NEGATIVE); Methadone POSITIVE (NEGATIVE); Opiates NEGATIVE (NEGATIVE); Phencyclidine NEGATIVE (NEGATIVE); THC Cannibis POSITIVE (NEGATIVE)
[2023-07-07] MEDS: NA CHLORIDE 0.9% 1,000 ML IV SCH (01:00)
[2023-07-07] MEDS ORDERED: SODIUM CHLORIDE 0.9% 10ML INJ IV PRN (10:45)
--- NOTE | 2023-07-07 14:36 | EKG ---
Test Date: 2023-07-06 Test Time: 23:13:44 Electronic Science Teacher: MARLIN MEASUREMENT RESULTS: Intervals: Rate: 46 PA: 168 QRSD: 86 QT: 500 QTc: 437 [place]: P: 55 PA: 168 QRS: 56 T: 58 INTERPRETIVE STATEMENTS: Marked sinus bradycardia Abnormal ECG Compared to ECG 05/24/2016 22:25:50 Myocardial infarct finding no longer present Electronically Signed On 07-07-23 14:35:12 CDT by Gumaro Montes
--- NOTE | 2023-07-07 19:17 | P.PN ---
Subjective Date of Service: 07/09/23 Chief Complaint: AMS Presented with altered mental status, confusion, suspected TIA CVA, patient is alert and oriented x 3 History of renal failure, chronic kidney disease admit with UTI, renal failure UA normal babatunde, 1 positive blood culture, repeat blood, no reported fever, - Physical Exam General: Confused, Comatose, Obese HEENT: Atraumatic, Normocephalic Neck: Supple, JVD not distended Respiratory: Clear to auscultation bilaterally, Normal air movement Cardiovascular: Regular rate/rhythm, Normal S1 S2 Capillary refill: <2 Seconds Gastrointestinal: Soft and benign, Non-distended, W/out hepatosplenomegaly Musculoskeletal: No clubbing, No swelling Integumentary: No rashes, No significant lesion, No tenderness/swelling Neurological: Abnormal gait, Abnormal speech, Abnormal strength, Abnormal cranial nerve function, Abnormal reflexes Lymphatics: No axilla or inguinal lymphadenopathy Review of Systems Per HPI Physical Examination - Vital Signs Temperature: 97.4 F Blood Pressure: 156/93 Pulse: 64 Respirations: 17 Pulse Ox (%): 97 - Physical Exam General: Alert, In no apparent distress, Oriented x3 HEENT: Atraumatic, Normocephalic Neck: Supple, JVD not distended Respiratory: Clear to auscultation bilaterally, Normal air movement Cardiovascular: Normal pulses, Regular rate/rhythm Capillary refill: <2 Seconds Gastrointestinal: Normal bowel sounds, Soft and benign Musculoskeletal: No clubbing, No swelling Integumentary: No breakdown, No significant lesion Neurological: Normal gait, Normal speech, Normal strength at 5/5 x4 extr - Studies Laboratory Data (last 24 hrs) 07/06/23 07/06/23 07/06/23 20:59 20:59 20:59 WBC 6.60 Hgb 12.2 Hct 36.3 Plt Count 146 L PT 11.2 INR 1.02 APTT 30.7 Sodium 141 Potassium 3.7 BUN 34 H Creatinine 1.66 H Glucose 119 H Magnesium 1.6 Total Bilirubin 0.5 AST 22 ALT 30 Alkaline Phosphatase 64 Assessment And Plan - Plan Assessment plan Adverse effect of other drugs, medicaments and biological substances Unintentional benzodiazepine overdose Abuse of other non-psychoactive substances Altered mental status, unspecified Tylenol, alcohol, UDS Blood cultures, urine cultures pending Chest x-ray The lungs are grossly clear. The heart is mildly enlarged in size. No displaced fractures.IMPRESSION: No acute intrathoracic process suspected. CT of the chest abdomen pelvis no acute findings CT of the head and neck no acute intracranial findings Cervical spine x-ray Multi disc space narrowing C6-C7, brain no acute intracranial finding UA positive for acute cystitis Urine drug screen positive for benzos, marijuana 1 positive blood culture, will repeat blood cultures Acute kidney injury unknown baseline Acute cystitis Trend kidney function, IV antibiotic UA normal babatunde Elevated BNP BNP 2480 Hypertension Resume appropriate home meds Full code DVT Diet Disposition Home independent prior Discharge Plan: Home - Code Status/Comfort Care Code Status: Full Code Critical Care: No Time Spent Managing PTS Care (In Minutes): 35
--- NOTE | 2023-07-07 19:17 | P.DS ---
Admission Date: 07/07/23 Discharge Date: 07/09/23 Disposition: ROUTINE DISCHARGE Discharge Condition: GOOD Reason for Admission: AMS Brief History of Present Illness: 53 yrs old Female presents to ER via EMS with complaints of Altered jerod Mental Status. The patient presents with confusion, disorientation, trouble concentrating. Onset: The jerod symptoms/episode began/occurred just prior to arrival. Possible causes: CVA or TIA, urine drug screen positive for benzodiazepines, marijuana use, acute cystitis - Physical Exam General: Alert, In no apparent distress, Oriented x3 HEENT: Atraumatic, Normocephalic Neck: Supple, JVD not distended Respiratory: Clear to auscultation bilaterally, Normal air movement Cardiovascular: Normal pulses, Regular rate/rhythm Capillary refill: <2 Seconds Gastrointestinal: Normal bowel sounds, Soft and benign Musculoskeletal: No clubbing, No swelling Integumentary: No breakdown, No significant lesion Neurological: Normal gait, Normal speech, Normal strength at 5/5 x4 extr Hospital Course: 53 year-old patient presented with cough and trouble concentrating.Was noted to have UTI, urine drug screen positive for benzodiazepines, marijuana. Condition improved with IV fluids, IV antibiotics. Patient tolerating diet, stable for discharge to home with follow-up appointment with primary care annie puente. PROBLEM: Acute cystitis treated with IV fluids, IV antibiotic-discharged home on p.o. cefdinir Unintentional benzodiazepine overdose use-alert and oriented x 3, relating independently Benzodiazepines use Steady gait-improved, evaluated with physical independent Marijuana use Rad/Lab/Micro: Chest x-ray The lungs are grossly clear. The heart is mildly enlarged in size. No displaced fractures.IMPRESSION: No acute intrathoracic process suspected. CT of the chest abdomen pelvis no acute findings CT of the head and neck no acute intracranial findings Cervical spine x-ray Multi disc space narrowing C6-C7, brain no acute intracranial finding UA positive for acute cystitis Urine drug screen positive for benzos, marijuana Blood culture x 1 positive probable contaminant-afebrile Blood cultures, urine cultures normal babatunde Continue home medicines as previously prescribed GOAL: Clear understanding of disease process INSTRUCTIONS: Physician Discharge Instructions: -Follow-up with PCP in 1 to 2 weeks -Please call Dr. Yuen at [phone] if any questions regarding hospital stay -Please call nursing station at [phone] if any nursing or medication questions -Return to the emergency room if symptoms worsen Diet: ADA, low sodium Activity: Fall precautions Vital Signs/Physical Exam: Temp Pulse Resp BP Pulse Ox 97.4 F 64 17 156/93 H 97 07/07/23 10:56 07/07/23 10:56 07/07/23 10:56 07/07/23 10:56 07/07/23 10:56 Laboratory Data at Discharge: WBC 6.60 thou/uL (4.3-10.9) 07/06/23 20:59 Hgb 12.2 g/dL (12.0-15.0) 07/06/23 20:59 Hct 36.3 % (36.0-45.0) 07/06/23 20:59 Plt Count 146 thou/uL (152-406) L 07/06/23 20:59 PT 11.2 SECONDS (9.5-12.5) 07/06/23 20:59 INR 1.02 07/06/23 20:59 APTT 30.7 SECONDS (24.3-36.9) 07/06/23 20:59 Sodium 141 mEq/L (136-145) 07/06/23 20:59 Potassium 3.7 mEq/L (3.5-5.1) 07/06/23 20:59 BUN 34 mg/dL (7-18) H 07/06/23 20:59 Creatinine 1.66 mg/dL (0.55-1.02) H 07/06/23 20:59 Glucose 119 mg/dL (74-106) H 07/06/23 20:59 Magnesium 1.6 mg/dL (1.6-2.4) 07/06/23 20:59 Total Bilirubin 0.5 mg/dL (0.2-1.0) 07/06/23 20:59 AST 22 U/L (15-37) 07/06/23 20:59 ALT 30 U/L (13-56) 07/06/23 20:59 Alkaline Phosphatase 64 U/L (45-117) 07/06/23 20:59 Home Medications: Cefdinir [Cefdinir*] 300 mg PO BID #14 cap 07/07/23 New Medications: Cefdinir [Cefdinir*] 300 mg PO BID #14 cap Physician Discharge Instructions: 53 year-old patient presented with cough and trouble concentrating.Was noted to have UTI, urine drug screen positive for benzodiazepines, marijuana. Condition improved with IV fluids, IV antibiotics. Patient tolerating diet, stable for discharge to home with follow-up appointment with primary care physician. PROBLEM: Acute cystitis treated with IV fluids, IV antibiotic discharge home on PO antibiotic Unintentional benzodiazepine overdose use Benzodiazepines Steady gait Marijuana use Rad/Lab/Micro: Chest x-ray The lungs are grossly clear. The heart is mildly enlarged in size. No displaced fractures.IMPRESSION: No acute intrathoracic process suspected. CT of the chest abdomen pelvis no acute findings CT of the head and neck no acute intracranial findings Cervical spine x-ray Multi disc space narrowing C6-C7, brain no acute intracranial finding UA positive for acute cystitis Urine drug screen positive for benzos, marijuana Blood culture x 1 positive will repeat blood culture Blood cultures, urine cultures normal babatunde Continue home medicines as previously prescribed GOAL: Clear understanding of disease process INSTRUCTIONS: Physician Discharge Instructions: -Follow-up with PCP in 1 to 2 weeks -Please call Dr. Yuen at [phone] if any questions regarding hospital stay -Please call nursing station at [phone] if any nursing or medication questions -Return to the emergency room if symptoms worsen Diet: ADA, low sodium Activity: Fall precautions Diet: AHA Activity: Fall precautions Followup: Gianna Conley PAC [Primary Care Provider] - Time spent managing pt's care (in minutes): 55
[2023-07-07] MEDS: LORATADINE 10 MG TAB ONE (19:48)
[2023-07-07] MEDS: LORATADINE 10 MG TAB PO PRN (19:52)
[2023-07-07] MEDS: FLUTICASONE 50MCG NASAL SPRAY NAS SCH (19:52)
--- NOTE | 2023-07-07 21:05 | RAD REPORT ---
EXAM DESCRIPTION: CT Head and Cervical Spine Without Intravenous Contrast CLINICAL HISTORY: The patient is 53 years old and is Female; MENTAL STATUS CHANGE TECHNIQUE: Axial computed tomography images of the head/brain and cervical spine without intravenous contrast. Sagittal and coronal reformatted images were created and reviewed. This CT exam was pe rformed using one or more of the following dose reduction techniques: automated exposure control, a djustment of the mA and/or kV according to patient size, and/or use of iterative reconstruction techn ique. COMPARISON: No relevant prior studies available. FINDINGS: Limitations: Evaluation limited by technique/positioning. Brain: Unremarkable. No hemorrhage. No significant white matter disease. No edema. Ventricles: Unremarkable. No ventriculomegaly. Skull: No acute fracture. Sinuses: Unremarkable as visualized. No acute sinusitis. Mastoid air cells: Unremarkable as visualized. No mastoid effusion. Vertebrae: See below. Discs/spinal canal/neural foramina: Multilevel disc space narrowing with degenerative endplate ch anges most prominent at C6-7. Soft tissues: Unremarkable. * A single impression for all exams can be found at the end of this report EXAM DESCRIPTION: CT Chest, Abdomen and Pelvis Without Intravenous Contrast CLINICAL HISTORY: The patient is 53 years old and is Female; MENTAL STATUS CHANGE TECHNIQUE: Axial computed tomography images of the chest, abdomen and pelvis without intravenous con trast. Sagittal and coronal reformatted images were created and reviewed. This CT exam was perfor med using one or more of the following dose reduction techniques: automated exposure control, adjus tment of the mA and/or kV according to patient size, and/or use of iterative reconstruction technique . COMPARISON: No relevant prior studies available. FINDINGS: CHEST: Lungs: Unremarkable. No mass. No consolidation. Pleural space: Unremarkable. No significant effusion. No pneumothorax. Heart: Unremarkable. No cardiomegaly. No significant pericardial effusion. No significant c oronary artery calcifications. ABDOMEN: Liver: Unremarkable. Gallbladder and bile ducts: Unremarkable. No calcified stones. No ductal dilation. Pancreas: Unremarkable. No ductal dilation. Spleen: Unremarkable. No splenomegaly. Adrenals: Unremarkable. No mass. Kidneys and ureters: Atrophic right kidney. No obstructing stones. No hydronephrosis. Stomach and bowel: Unremarkable. No obstruction. No mucosal thickening. PELVIS: Appendix: No findings to suggest acute appendicitis. Bladder: Bladder is markedly distended. No stones. Reproductive: Unremarkable as visualized. CHEST, ABDOMEN and PELVIS: Intraperitoneal space: Unremarkable. No significant fluid collection. No free air. Bones/joints: Unremarkable. No acute fracture. No dislocation. Soft tissues: Unremarkable. Vasculature: Unremarkable. No aortic aneurysm. Lymph nodes: Unremarkable. No enlarged lymph nodes. * A single impression for all exams can be found at the end of this report IMPRESSION: CT Head and Cervical Spine Without Intravenous Contrast: No acute intracranial abnormality. No acute findings in the cervical spine. CT Chest, Abdomen and Pelvis Without Intravenous Contrast: No acute findings in the chest, abdomen or pelvis. Electronically signed by: Suresh Chaudhary MD 07/07/2023 12:00 AM CDT Due to temporary technical issues with the PACS/Fluency reporting system, reports are being signed by the in house radiologists without review as a courtesy to insure prompt reporting. The interpreting radiologist is fully responsible for the content of the report.
[2023-07-08 03:44] LABS: Absolute Basophils 0.1 K/uL (0-0.5); Absolute Eosinophils 0.2 K/uL (0-0.5); Absolute Lymphocytes (CBC) 2.5 K/uL (0.7-4.9); Absolute Monocytes 0.5 K/uL (0.1-1.3); Absolute Neutrophil 4.5 K/uL (1.8-8.0); Basophils % 0.7 % (0-1.3); Hematocrit 33.8 % (36.0-45.0); Hemoglobin 11.7 g/dL (12.0-15.0); Lymphocytes % 32.3 % (15.3-44.8); MCH 30.5 pg (27.0-35.0); MCHC 34.5 g/dL (32.0-36.0); MCV 88.6 fL (80-100); MPV 7.7 fL (7.6-11.3); Monocytes % 6.1 % (3.3-12.3); Neutrophils % 58.9 % (41.7-73.7); Platelets 162 thou/uL (152-406); RBC Red Blood Cell Count 3.82 M/uL (3.86-4.86); Red Cell Distribution Width 13.2 % (12.1-15.2)
[2023-07-08 04:05] LABS: Albumin 2.7 g/dL (3.4-5.0); Albumin/Globulin Ratio 0.7 (1.1-1.8); Bilirubin Total 0.6 mg/dL (0.2-1.0); Globulin 3.8 g/dL (2.3-3.5); Protein, Total 6.5 g/dL (6.4-8.2)
--- NOTE | 2023-07-08 08:35 | P.PN ---
Subjective Date of Service: 07/09/23 Chief Complaint: AMS Presented with altered mental status, confusion, suspected TIA CVA, patient is alert and oriented x 3 History of renal failure, chronic kidney disease admit with UTI, renal failure PT OT eval unsteady gait-doing well with physical therapy independent - Physical Exam General: Confused, Comatose, Obese HEENT: Atraumatic, Normocephalic Neck: Supple, JVD not distended Respiratory: Clear to auscultation bilaterally, Normal air movement Cardiovascular: Regular rate/rhythm, Normal S1 S2 Capillary refill: <2 Seconds Gastrointestinal: Soft and benign, Non-distended, W/out hepatosplenomegaly Musculoskeletal: No clubbing, No swelling Integumentary: No rashes, No significant lesion, No tenderness/swelling Neurological: Abnormal gait, Abnormal speech, Abnormal strength, Abnormal cranial nerve function, Abnormal reflexes Lymphatics: No axilla or inguinal lymphadenopathy Review of Systems per HPI Physical Examination - Vital Signs Temperature: 97.4 F Blood Pressure: 156/93 Pulse: 64 Respirations: 17 Pulse Ox (%): 97 Assessment And Plan - Plan Assessment plan Adverse effect of other drugs, medicaments and biological substances Unintentional benzodiazepine overdose Abuse of other non-psychoactive substances Altered mental status, unspecified Tylenol, alcohol, UDS Blood cultures, urine cultures pending Chest x-ray The lungs are grossly clear. The heart is mildly enlarged in size. No displaced fractures.IMPRESSION: No acute intrathoracic process suspected. CT of the chest abdomen pelvis no acute findings CT of the head and neck no acute intracranial findings Cervical spine x-ray Multi disc space narrowing C6-C7, brain no acute intracranial finding UA positive for acute cystitis Urine drug screen positive for benzos, marijuana 1 positive blood culture, will repeat blood cultures Unsteady gait PT eval Acute kidney injury unknown baseline Acute cystitis Trend kidney function, IV antibiotic UA normal babatunde Elevated BNP BNP 2480 Hypertension Resume appropriate home meds Full code DVT Diet Disposition Home independent prior Discharge Plan: Home - Code Status/Comfort Care Code Status: Full Code Critical Care: No Time Spent Managing PTS Care (In Minutes): 35
[2023-07-08] MEDS: FLUTICASONE 50MCG NASAL SPRAY NAS SCH (08:52)
[2023-07-08] MEDS: PANTOPRAZOLE 40 MG INJ IVP SCH (08:52)
[2023-07-08] MEDS: ACETAMINOPHEN 325 MG TABLET PO PRN (11:17)
[2023-07-08 14:39] VITALS: O2SAT 94
[2023-07-09 07:18] VITALS: BP 156/93; TEMP 97.4
== END 2023-07-08 11:30 | disposition home or self-care (01) | DRG 917 ==
LOC: ER 19:59 → ERHOLD 07-07 00:10 → 2ND 07-07 00:43
PROVIDERS: ADMIT Family Medicine; ATTEND Hospitalist
DX: T42.4X1A Poisoning by benzodiazepines, accidental (unintentional), initial encounter (principal); G92.8 Other toxic encephalopathy; R40.20 Unspecified coma; E87.20 Acidosis, unspecified; R78.81 Bacteremia; N30.00 Acute cystitis without hematuria; N17.9 Acute kidney failure, unspecified; I12.9 Hypertensive chronic kidney disease with stage 1 through stage 4 chronic kidney disease, or unspecified chronic kidney disease; N18.9 Chronic kidney disease, unspecified; F13.10 Sedative, hypnotic or anxiolytic abuse, uncomplicated; F17.200 Nicotine dependence, unspecified, uncomplicated; E66.9 Obesity, unspecified; Z68.37 Body mass index [BMI] 37.0-37.9, adult
CPT/HCPCS: 36415; 70450; 71045; 71250; 72125; 80048; 80053; 80076; 80143; 80179; 80307; 81001; 81025; 82077; 82140; 82805; 83605; 83735; 83880; 84145; 84484; 85025; 85610; 85730; 87040; 87077; 87086; 87088; 87186; 87205; 93005; 94760; 96361; 96365; 96372; 96375; 97161; 99285; C9113; J0696; J2543; J3411; J3486; J7030

== ENCOUNTER 2023-07-11 16:14 | Emergency (ER) | payer OTHER ==
--- OUTSIDE RECORDS SUMMARY | 2023-07-11 16:17 | XMS REPORT | Continuity of Care Document ---
Author Name Unknown Address [address] [facility] [address] [place] [id number] [facility] thconnect Address [address] [facility] [address] [place] [address] Care Team Providers Care Ammonium Nitrate Neutralizer Name Role Phone A_Byrd Attending Clinician Unavailable A_Byrd Admitting Clinician Unavailable Payers Payer Name Policy Type Policy Number Effective Date Expirati on Date Source [facility] [id number] Problems Condition Name Condition Details Condition Category Status Onset Date Resolution Date Last Treatment Date Treating Clinician Comments Source Fever Fever Problem Active 2020-0 6-11 00:00: 00 [facility] Nausea present Nausea Present Problem Active 2020-0 6-11 00:00: 00 [facility] Chronic hepatitis C Chronic Hepatitis C Problem Active 2020-0 4-29 00:00: 00 [facility] Chronic anxiety Chronic Anxiety Problem Active 2020-0 4-29 00:00: 00 [facility] Menopausal syndrome Menopausal Syndrome Problem Active 2020-0 4-29 00:00: 00 [facility] Excessive weight gain Excessive Weight Gain Problem Active 2020-0 4-29 00:00: 00 [facility] Bilateral foot joint pain Bilateral Foot Joint Pain Problem Active 20200 4-29 00:00: 00 [facility] Social History Smoking Status Start Date Stop Date Source Never Smoker [facility] Medications Ordered Medication Name [...] as needed for nausea [facility] Procedures Procedure Date / Time Performed Performing Clinicia n Source MAMMO, screening, digital, bilateral 2019-07-03 00:00:00 [facility] Removal of Ectopic Fetus 1993-03-06 00:00:00 [facility] Encounters Start Date/Time End Date/Time Encounter Type Admission Type Attending Clinicians Care Facility Care Department Encounter ID Source 2020-01-11 01:05:00 2020-01-11 01:05:00 Outpatient A_Byrd [facility] [id number] 2019-12-07 01:02:00 2019-12-07 01:02:00 Outpatient A[facility] [id number] 2019-11-14 11:54:00 2019-11-14 11:54:00 Outpatient A_[facility] [id number] [facility] 2019-10-11 05:56:00 2019-10-11 05:56:00 Outpatient A_Byrd [facility] [id number] [facility] 2019-09-22 12:07:00 2019-09-22 12:07:00 Outpatient A_Byrd [facility] [id number] [facility] 2019-09-03 03:42:00 2019-09-03 03:42:00 Outpatient A_Byrd [facility] [id number] [facility] 2019-08-18 12:18:00 2019-08-18 12:18:00 Outpatient A_Byrd [facility] [id number] [facility] 2019-08-15 05:59:00 2019-08-15 05:59:00 Outpatient A_Byrd [facility] [id number] [facility] 2019-08-15 00:00:00 2019-08-15 00:00:00 Marco Antonio Montalvo MD: [address] [place] [address] [address], [place] [address] , Ph. [facility] [id number] [facility] 2019-08-14 03:41:00 2019-08-14 03:41:00 Outpatient A_Byrd [facility] [id number] [facility] 2019-07-14 12:08:00 2019-07-14 12:08:00 Outpatient A_Byrd [facility] [id number] [facility] 2019-07-03 06:07:00 2019-07-03 06:07:00 Outpatient A_Byrd [facility] [id number] [facility] 2019-07-03 00:00:00 2019-07-03 00:00:00 Marco Antonio Montalvo MD: [address] [place] [id number] , Ph. [facility] [id number] [facility] 2019-07-01 02:46:00 2019-07-01 02:46:00 Outpatient A_Byrd [facility] [id number] [facility] 2019-06-25 11:11:00 2019-06-25 11:11:00 Outpatient A_Byrd [facility] [id number] [facility] 2019-06-20 05:20:00 2019-06-20 05:20:00 Outpatient A_Byrd [facility] [id number] [facility] 2019-06-19 01:21:00 2019-06-19 01:21:00 Outpatient A_Byrd [facility] [id number] [facility]
[2023-07-11] MEDS ORDERED: HALOPERIDOL LACT 5 MG/ML INJ ONE (17:26)
[2023-07-11] MEDS ORDERED: DIPHENHYDRAMINE 50 MG/ML VIAL ONE (17:27)
[2023-07-11 17:31] LABS: Absolute Basophils 0.1 K/uL (0-0.5); Absolute Eosinophils 0.1 K/uL (0-0.5); Absolute Lymphocytes (CBC) 3.9 K/uL (0.7-4.9); Absolute Monocytes 0.7 K/uL (0.1-1.3); Basophils % 0.9 % (0-1.3); Hematocrit 42.1 % (36.0-45.0); Hemoglobin 14.2 g/dL (12.0-15.0); Lymphocytes % 32.7 % (15.3-44.8); MCH 29.8 pg (27.0-35.0); MCHC 33.7 g/dL (32.0-36.0); MCV 88.5 fL (80-100); MPV 7.9 fL (7.6-11.3); Neutrophils % 59.4 % (41.7-73.7); Nucleated Red Blood Cells % 0.1 % (0-0); Platelets 266 thou/uL (152-406); RBC Red Blood Cell Count 4.76 M/uL (3.86-4.86); Red Cell Distribution Width 13.2 % (12.1-15.2)
--- NOTE | 2023-07-11 18:24 | RAD REPORT ---
EXAM DESCRIPTION: CT - Head Brain Wo Cont - 07/11/2023 4:57 pm CLINICAL HISTORY: CONFUSED COMPARISON: No comparisons TECHNIQUE: Noncontrast head CT images were obtained without IV contrast. Multiplanar reformats were generated and reviewed. All CT scans are performed using dose optimization technique as appropriate and may include automated exposure control or mA/KV adjustment according to patient size. FINDINGS: No intracranial hemorrhage, mass, or edema. Midline structures are unremarkable. Normal ventricular caliber for age. Adams-white matter differentiation is preserved, without evidence of acute infarct. No abnormal extra- axial fluid collections. Mastoid air cells and visualized portions of the paranasal sinuses are clear. No acute bony findings. IMPRESSION: No evidence of an acute intracranial process.
[2023-07-11 19:27] LABS: Anion Gap 9.6 mEq/L (5.0-15.0); Potassium 3.6 mEq/L (3.5-5.1)
--- NOTE | 2023-07-11 19:48 | EDPHYS ---
Physician Documentation [facility] Name: China Champagne Age: 53 yrs Sex: Female : 1970 Arrival Date: 07/11/2023 Time: 16:14 Bed 10 Private MD: ED Physician Malick Baeza HPI: 07/10 16:36 This 53 yrs old Female presents to ER via Ambulatory with complaints of ec2 Trouble sleeping. 16:36 Patient arrives today for reported trouble sleeping. States that she has not slept in 4 ec2 days. Patient reports no falls injuries or trauma. Patient reports possible staring spells. No fevers or chills, no nausea or vomiting. No cough or cold symptoms, no issues with p.o. intake.. 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 - Infectious Disease History:: Denies. - Social history:: Smoking status: Patient reports the use of cigarette tobacco products. ROS: 16:36 Constitutional: as per hpi ec2 Exam: 16:36 Constitutional: GEN: NAD Head: atraumatic Eyes: EOMI Ears: External ears are ec2 normal. CV: regular rate LUNGS: no respiratory distress ABD: non-distended SKIN: no evidence of rashes MSK: no evidence of trauma NEURO: moves all extremities equally, cranial nerves II through XII intact, strength intact all 4 extremities. Vital Signs: 16:28 BP 110 / 81; Pulse 63; Resp 18 S; Temp 97.8(TE); Pulse Ox 97% on R/A; Weight 127.01 kg as6 (R); Height 5 ft. 9 in. (R); Pain 0/10; 17:30 BP 112 / 85; Pulse 63; Resp 18; Pulse Ox 97% on R/A; tl4 18:00 BP 111 / 73; Pulse 82; Resp 16; Pulse Ox 97% on R/A; tl4 18:30 BP 111 / 82; Pulse 69; Resp 18; Pulse Ox 98% on R/A; tl4 19:00 BP 116 / 83; Pulse 72; Resp 18; Pulse Ox 97% on R/A; tl4 19:00 BP 111 / 66; Pulse 77; Resp 16; Temp 98.7(O); Pulse Ox 98% on R/A; Pain 0/10; tl4 16:28 Body Mass Index 41.35 (127.01 kg, 175.26 cm) as6 16:28 Pain Scale: Adult as6 19:00 Pain Scale: Adult tl4 MDM: 16:31 Patient medically screened. ec2 16:36 Data reviewed: vital signs. ED course: Patient arrives today for trouble sleeping. ec2 Examination remarkable for neuro intact individual is otherwise in no acute distress. Will obtain lab work, CT imaging. Evaluate for intracranial mass, electrolyte disturbances, renal dysfunction.. 19:45 Differential Diagnosis Insomnia, dehydration, medication side effect, garnishment specialist illness. Counseling: I had a detailed discussion with the patient and/or guardian regarding the historical points, exam findings, and any diagnostic results supporting the discharge/admit diagnosis, lab results, radiology results, the need for outpatient follow up, to return to the emergency department if symptoms worsen or persist or if there are any questions or concerns that arise at home. Response to treatment: the patient's symptoms have markedly improved after treatment, and as a result, I will discharge patient. Special discussion: I discussed with the patient/guardian in detail that at this point there is no indication for admission to the hospital. It is understood, however, that if the symptoms persist or worsen the patient needs to return immediately for re-evaluation. Based on the history and exam findings, there is no indication for further emergent testing or inpatient evaluation. I discussed with the patient/guardian the need to see the primary care provider for further evaluation of the symptoms. I discussed with the patient/guardian the need to see the psychiatrist for further evaluation of the symptoms. ED course: No acute findings and workup today. Patient resting comfortably after Haldol. Signed out to me by Dr. Patterson with plan to discharge home if blood and CAT scan of the head were normal. Patient with negative CT head and no acute findings and blood work. Stable vital signs. Feels much better. Recommend [id number] sleep medication and follow-up with PCP and possibly psychiatry. Return precautions given and understood.. 07/10 16:35 Order name: CBC with Diff; Complete Time: 17:59 ec2 07/10 16:35 Order name: BMP; Complete Time: 19:40 ec2 07/10 16:35 Order name: CT Head Brain wo Cont; Complete Time: 18:26 ec2 07/10 17:35 Order name: Labs - recollect needed: recollect green top; Complete Time: 18:56 bd Administered Medications: 17:48 Drug: diphenhydrAMINE IVP 50 mg IVP once Route: IVP; Site: right forearm; iw 18:56 Follow up: Response: No adverse reaction tl4 17:48 Drug: Haloperidol IVP 5 mg IVP once Route: IVP; Site: right forearm; iw 18:56 Follow up: Response: No adverse reaction tl4 Disposition Summary: 07/11/23 19:47 Discharge Ordered Notes: Location: Home rn Condition: Stable rn Diagnosis - Sleep disorder, unspecified rn Followup: ec2 - With: Private Physician - When: - Reason: Re-evaluation by your physician Discharge Instructions: - Discharge Summary Sheet rn - Insomnia rn Forms: - Medication Reconciliation Form rn - Antibiotic international accountant - Prescription Opioid Use rn - Patient Portal Instructions rn - Leadership Thank You Letter rn Signatures: Dispatcher [employer] Veronica Bush Irene, RN RN Malick Marie MD MD rn Slawson, Ashby, RN RN as6 Wisam Patterson MD MD ec2 Ra Johnson RN tl4
--- NOTE | 2023-07-11 19:48 | ER ---
Nurse's Notes [facility] Name: China Champagne Age: 53 yrs Sex: Female : 1970 Arrival Date: 07/11/2023 Time: 16:14 Bed 10 Private MD: Diagnosis: Sleep disorder, unspecified Presentation: 07/10 16:28 Chief complaint: Patient states: pt reports she hasn't slept since Monday and doesn't as6 have an appetite. Coronavirus screen: At this time, the client does not indicate any symptoms associated with coronavirus-19. Ebola Screen: No symptoms or risks identified at this time. Initial Sepsis Screen: Does the patient meet any 2 criteria? No. Patient's initial sepsis screen is negative. Does the patient have a suspected source of infection? No. Patient's initial sepsis screen is negative. Risk Assessment: Do you want to hurt yourself or someone else? Patient reports no desire to harm self or others. Onset of symptoms was July 09, 2023. 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 - Infectious Disease History:: Denies. - Social history:: Smoking status: Patient reports the use of cigarette tobacco products. Screenin:10 [facility] ED Fall Risk Assessment (Adult) History of falling in the last 3 months, tl4 including since admission No falls in past 3 months (0 pts) Confusion or Disorientation No (0 pts) Intoxicated or Sedated No (0 pts) Impaired Gait No (0 pts) Mobility Assist Device Used No (0 pt) Altered Elimination No (0 pt) Score/Fall Risk Level 0 - 2 = Low Risk Oriented to surroundings, Maintained a safe environment, Educated pt \T\ family on fall prevention, incl call for assistance when getting out of bed, Assessed \T\ reinforced patient's understanding of fall precautions. Abuse screen: Denies threats or abuse. Denies injuries from another. Nutritional screening: No deficits noted. Tuberculosis screening: No symptoms or risk factors identified. Assessment: 17:40 General: Appears in no apparent distress. Behavior is calm, cooperative. Pain: Denies tl4 pain. Neuro: Level of Consciousness is awake, alert, obeys commands, Oriented to person, place, time, situation, Moves all extremities. Full function Gait is steady, Speech is normal. Cardiovascular: Capillary refill < 3 seconds Patient's skin is warm and dry. Respiratory: Airway is patent Respiratory effort is even, unlabored, Respiratory pattern is regular, symmetrical, Breath sounds are clear bilaterally. GI: No signs and/or symptoms were reported involving the gastrointestinal system. : No signs and/or symptoms were reported regarding the genitourinary system. EENT: No signs and/or symptoms were reported regarding the EENT system. Derm: No signs and/or symptoms reported regarding the dermatologic system. Musculoskeletal: No signs and/or symptoms reported regarding the musculoskeletal system. 18:58 Reassessment: Patient and/or family updated on plan of care and expected duration. Pain tl4 level reassessed. Patient is alert, oriented x 3, equal unlabored respirations, skin warm/dry/pink. Pt denies any needs at this time. Will continue to monitor Patient denies pain at this time. 19:55 Reassessment: No changes from previously documented assessment. Patient and/or family tl4 updated on plan of care and expected duration. Pain level reassessed. Patient is alert, oriented x 3, equal unlabored respirations, skin warm/dry/pink. Patient denies pain at this time. Vital Signs: 16:28 BP 110 / 81; Pulse 63; Resp 18 S; Temp 97.8(TE); Pulse Ox 97% on R/A; Weight 127.01 kg as6 (R); Height 5 ft. 9 in. (R); Pain 0/10; 17:30 BP 112 / 85; Pulse 63; Resp 18; Pulse Ox 97% on R/A; tl4 18:00 BP 111 / 73; Pulse 82; Resp 16; Pulse Ox 97% on R/A; tl4 18:30 BP 111 / 82; Pulse 69; Resp 18; Pulse Ox 98% on R/A; tl4 19:00 BP 116 / 83; Pulse 72; Resp 18; Pulse Ox 97% on R/A; tl4 19:00 BP 111 / 66; Pulse 77; Resp 16; Temp 98.7(O); Pulse Ox 98% on R/A; Pain 0/10; tl4 16:28 Body Mass Index 41.35 (127.01 kg, 175.26 cm) as6 16:28 Pain Scale: Adult as6 19:00 Pain Scale: Adult tl4 ED Course: 16:16 Patient arrived in ED. mr 16:23 Wisam Patterson MD is Attending Physician. ec2 16:30 Triage completed. as6 16:32 Arm band placed on right wrist. as6 16:59 CT Head Brain wo Cont In Process Unspecified. EDMS 17:20 Initial lab(s) drawn, by ED staff, sent to lab. Inserted saline lock: 20 gauge in right tl4 forearm, using aseptic technique. Blood collected. 17:23 Tara Fu, RN is Primary Nurse. iw 17:24 BMP Sent. iw 17:24 CBC with Diff Sent. iw 18:10 Patient has correct armband on for positive identification. Bed in low position. Call tl4 light in reach. Side rails up X 1. Adult w/ patient. Provided Education on: ED process. Client placed on continuous cardiac and pulse oximetry monitoring. NIBP monitoring applied. Door closed. Noise minimized. Moved to private room. Warm blanket given. Pillow given. PO fluids given. 18:11 No provider procedures requiring assistance completed. tl4 18:17 Attending Physician role handed off by Wisam Patterson MD rn 18:17 Malick Baeza MD is Attending Physician. rn 19:58 IV discontinued, intact, bleeding controlled, No redness/swelling at site. Pressure tl4 dressing applied. Administered Medications: 17:48 Drug: diphenhydrAMINE IVP 50 mg IVP once Route: IVP; Site: right forearm; iw 18:56 Follow up: Response: No adverse reaction tl4 17:48 Drug: Haloperidol IVP 5 mg IVP once Route: IVP; Site: right forearm; iw 18:56 Follow up: Response: No adverse reaction tl4 Medication: 18:13 VIS not applicable for this client. tl4 Outcome: 19:47 Discharge ordered by . rn 19:58 Discharged to home ambulatory, tl4 19:58 Condition: stable 19:58 Discharge instructions given to patient, Instructed on discharge instructions, follow up and referral plans. Demonstrated understanding of instructions, follow-up care, 19:59 Patient left the ED. tl4 Signatures: Dispatcher [employer] ED WyattAme palm, Reg Reg mr Tara Fu, Malick Soto RN, MD MD rn Slawson, Ashby, RN RN as6 Wisam Patterson MD MD ec2 Ra Johnson RN RN tl4 Corrections: (The following items were deleted from the chart) 16:33 16:28 Acuity: ADRYAN 4 as6 as6 18:13 18:11 BP 112 / 85; Pulse 63bpm; Resp 18bpm; Pulse Ox 97% RA; tl4 tl4 19:57 17:50 BP 112 / 85; Pulse 63bpm; Resp 18bpm; Pulse Ox 97% RA; tl4 tl4
[2023-07-11 20:14] VITALS: BP 111/66; TEMP 98.7; O2SAT 98
== END 2023-07-11 19:59 | disposition home or self-care (01) ==
LOC: ER 16:14
DX: G47.9 Sleep disorder, unspecified (principal); I10 Essential (primary) hypertension; Z72.0 Tobacco use
CPT/HCPCS: 85025; 80048; 36415; 70450; J1630; J1200